=== PATIENT | female | born 1955 | race Caucasian/White ===

== ENCOUNTER 2019-05-15 03:33 | Inpatient (IN) | payer OTHER ==
[~2019-05-15] VITALS: Ht 165.1 cm; Wt 52.2 kg
[2019-05-15] VITALS (14 sets, daily range): BP systolic 85–112; BP diastolic 53–84
--- NOTE | 2019-05-15 03:48 | PHYS DOC ---
Adult General HPI HPI 64-year-old female presents to the emergency department [facility] after a fall. Patient states she's had a few drinks tonight she fell off a barstool landing on her left hip. She denies any loss of consciousness or head injury. Patient complains of left hip pain. She has underlying history of hypertension, hypothyroidism. Patient denies any nausea, vomiting, chest pain, shortness of breath, abdominal pain, headache or visual changes. Movements make the pain worse Review of Systems Review of Systems Constitutional: Denies fever or chills [] Respiratory: Denies cough or shortness of breath [] Cardiovascular: No additional information not addressed in HPI [] GI: Denies abdominal pain, nausea, vomiting, bloody stools or diarrhea [] Musculoskeletal: left hip pain Integument: Denies rash or skin lesions [] Neurologic: Denies headache, focal weakness or sensory changes [] All other systems were reviewed and found to be within normal limits, except as documented in this note. Current Medications Current Medications Current Medications Medications (Trade) Dose Ordered Sig/Ramon Start Time Stop Time Status Last Admin Dose Admin Fentanyl Citrate (Fentanyl 2ml Vial) 100 mcg 1X ONCE 05/15/19 04:15 05/15/19 04:16 UNV 05/15/19 04:14 100 MCG Allergies Allergies Allergies Coded Allergies Type Severity Reaction Last Updated Verified No Known Drug Allergies 05/15/19 No Physical Exam Physical Exam Constitutional: Well developed, well nourished, no acute distress, non-toxic appearance. [] HENT: Normocephalic, atraumatic, bilateral external ears normal, oropharynx moist, no oral exudates, nose normal. [] Eyes: PERRLA, EOMI, conjunctiva normal, no discharge. [] Neck: Normal range of motion, no tenderness, supple, no stridor. [] Cardiovascular:Heart rate regular rhythm, no murmur [] Lungs & Thorax: Bilateral breath sounds clear to auscultation [] Abdomen: Bowel sounds normal, soft, no tenderness, no masses, no pulsatile masses. [] Skin: Warm, dry, no erythema, no rash. [] Back: No tenderness, no CVA tenderness. [] Extremities: No tenderness, no cyanosis, no clubbing, ROM intact, no edema. [] Neurologic: Alert and oriented X 3, normal motor function, normal sensory function, no focal deficits noted. [] Psychologic: Affect normal, judgement normal, mood normal. [] Current Patient Data Vital Signs Vital Signs Date Time Temp Pulse Resp B/P (MAP) Pulse Ox O2 Delivery O2 Flow Rate FiO2 05/15/19 03:33 98.6 76 20 145/87 (106) 99 Room Air 98.6 EKG EKG EKG reviewed, normal sinus rhythm, heart rate 70, normal axis. Nonurgent EKG[] Interpretation Time: Interpretation time 0 4:30 Radiology/Procedures Radiology/Procedures [] Course & Med Decision Making Course & Med Decision Making Pertinent Labs and Imaging studies reviewed. (See chart for details) []64-year-old female presents to the emergency department [facility] after a fall. Patient states she's had a few drinks tonight she fell off a barstool landing on her left hip. She denies any loss of consciousness or head injury. Patient complains of left hip pain. She has underlying history of hypertension, hypothyroidism. Patient denies any nausea, vomiting, chest pain, shortness of breath, abdominal pain, headache or visual changes. Movements make the pain worse Xray reviewed with evidence of left intertrochanteric hip fracture Discussed admit and findings with patient/family at bedside Discussed with Dr. PÉREZ regarding xray Plan admit and ortho consult - NPO Gabo Disclaimer Gabo Disclaimer This electronic medical record was generated, in whole or in part, using a voice recognition dictation system. Departure Departure Impression: Primary Impression: Intertrochanteric fracture of left hip Disposition: ADMITTED INPATIENT Admitting Physician: ANNA Condition: STABLE Problem Qualifiers Primary Impression: Intertrochanteric fracture of left hip Encounter type: initial encounter Fracture type: closed Fracture alignment: nondisplaced Qualified Codes: S72.145A - Nondisplaced intertrochanteric fracture of left femur, initial encounter for closed fracture DAYNA MOROCHO MD May 15, 2019 03:48
[2019-05-15] MEDS ORDERED: fentaNYL PF VIAL 100 MCG/2 ML VIAL IVP ONE (04:15)
[2019-05-15] MEDS ORDERED: ONDANSETRON PF 4 MG/2 ML VIAL. IV PRN ×3 (04:15→16:45)
[2019-05-15 04:35] LABS: BASO # 0.1 x10^3/uL (0.0-0.2); BASO % 1 % (0-3); EOS # 0.4 x10^3/uL (0.0-0.7); EOS % 4 % (0-3); HEMATOCRIT 43.3 % (36.0-47.0); HEMOGLOBIN 15.3 g/dL (12.0-15.5); LYMPH # 2.3 x10^3/uL (1.0-4.8); LYMPH % 25 % (24-48); MEAN CORPUSCULAR HEMOGLOBIN 35 pg (25-35); MEAN CORPUSCULAR HGB CONC 35 g/dL (31-37); MEAN CORPUSCULAR VOLUME 100 fL (79-100); MONO # 0.7 x10^3/uL (0.0-1.1); MONO % 7 % (0-9); NEUT # 5.8 x10^3/uL (1.8-7.7); NEUT % 63 % (31-73); PLATELET COUNT 276 x10^3/uL (140-400); RED BLOOD COUNT 4.33 x10^6/uL (3.50-5.40); RED CELL DISTRIBUTION WIDTH 12.3 % (11.5-14.5); WHITE BLOOD COUNT 9.2 x10^3/uL (4.0-11.0)
[2019-05-15] MEDS ORDERED: HYDROmorphone 2 MG/ML VIAL IV ONE (04:45)
[2019-05-15 04:56] LABS: PROTHROMBIN TIME PATIENT 11.6 SEC (11.7-14.0)
--- NOTE | 2019-05-15 05:10 | RAD ---
Left hip single view: Reason for examination: Fell with shortening and external rotation. There appears to be a comminuted fracture involving the intratrochanteric left femur. The femoral head is in normal location at the acetabulum. Distal femur appears to be intact. IMPRESSION: Comminuted fracture of the intratrochanteric left femur. Electronically signed by: Reema Prajapati MD (05/15/2019 5:07 AM) [facility]
[2019-05-15 05:15] LABS: CALCIUM 10.3 mg/dL (8.5-10.1); CREATININE 0.6 mg/dL (0.6-1.0); POTASSIUM 3.7 mmol/L (3.5-5.1)
[2019-05-15 05:19] LABS: ALBUMIN 4.3 g/dL (3.4-5.0); ALBUMIN/GLOBULIN RATIO 1.2 (1.0-1.7); TOTAL BILIRUBIN 0.4 mg/dL (0.2-1.0)
[2019-05-15] MEDS: fentaNYL PF VIAL 100 MCG/2 ML VIAL IV PRN ×5 (05:52→17:55)
[2019-05-15] MEDS: IV NORMAL SALINE 1000ML BAG 1,000 ML IV SCH ×2 (06:14→13:28)
[2019-05-15] MEDS ORDERED: HYDR12.575 PO (07:25)
[2019-05-15] MEDS ORDERED: LEVO100T PO (07:25)
[2019-05-15] MEDS ORDERED: LOSA25TA54 PO (07:25)
[2019-05-15] MEDS ORDERED: CALC-98 PO (07:25)
[2019-05-15] MEDS ORDERED: MULT1TAB52 PO (07:25)
[2019-05-15] MEDS ORDERED: ASPI-630 PO (07:25)
[2019-05-15] MEDS ORDERED: CARV12.511 PO (07:25)
--- NOTE | 2019-05-15 07:36 | NUR ---
Pt. arrived this morning at 0500 bed from ER. СЕРГЕЙ Price brought her up. Pt. is AxOx4 and on RA but complains of pain to left hip. Enrique is at the bedside. Admission assessment done at this time. Bed in lowest position, call light within reach. Will continue to monitor.
--- NOTE | 2019-05-15 07:41 | NUR ---
Pt.'s pharmacy is [facility] in [place], [place]. It would not pop up on pharmacies so [facility] pharmacy was put in as preferred.
[2019-05-15] MEDS ORDERED: IV RINGERS,LACTATED 1000ML 1,000 ML IV SCH (07:54)
[2019-05-15] MEDS ORDERED: MORPHINE SULFATE 2 MG/ML VIAL. IV PRN ×2 (08:00→16:45)
[2019-05-15] MEDS ORDERED: fentaNYL PF VIAL 100 MCG/2 ML VIAL IV PRN ×2 (08:00→16:45)
[2019-05-15] MEDS ORDERED: HYDROmorphone 2 MG/ML VIAL IV PRN (08:00)
[2019-05-15] MEDS ORDERED: PROCHLORPERAZINE 10 MG/2 ML VIAL. IV PRN (08:00)
--- NOTE | 2019-05-15 08:30 | PDOC1 ---
History and Physical Date of Admission Date of Admission DATE: 05/15/19 TIME: 08:25 Identification/Chief Complaint Chief Complaint Fall, left hip pain History of Present Illness History of Present Illness Ms Pollard is a 64yo F w/ PMHx hypothyroidism, HTN, smoker who [facility] a [facility]. Patient states she's had a few drinks tonight she fell off a barstool landing on her left hip. She denies any loss of consciousness or head injury. Patient complains of left hip pain. She has underlying history of hypertension, hypothyroidism. Patient denies any nausea, vomiting, chest pain, shortness of breath, abdominal pain, headache or visual changes. Movements make the pain worse. Noted with shortening and external rotation in ED, confirmed left intertrochanteric comminuted fracture on X-ray. EKG showed NSR. Sodium 132, calcium 10.3. Per her daughter she has a relatively heavy ETOH use history. Past Medical History Cardiovascular: HTN GI: No pertinent hx Heme/Onc: No pertinent hx Hepatobiliary: No pertinent hx Psych: No pertinent hx Rheumatologic: No pertinent hx Infectious disease: No pertinent hx ENT: No pertinent hx Renal/: No pertinent hx Endocrine: Hypothyroidism Dermatology: No pertinent hx Family History Family History: Hypertension Social History Smoke: 1 pack per day ALCOHOL: heavy Drugs: None Current Problem List Problem List Problems Medical Problems: (1) Fall Status: Acute (2) Hypertension Status: Acute (3) Intertrochanteric fracture of left hip Status: Acute (4) Left hip pain Status: Acute Current Medications Current Medications Current Medications Fentanyl Citrate (Fentanyl 2ml Vial) 100 mcg 1X ONCE IVP Last administered on 05/15/19at 04:14; Start 05/15/19 at 04:15; Stop 05/15/19 at 04:28; Status DC Ondansetron HCl (Zofran) 4 mg PRN Q8HRS PRN IV NAUSEA/VOMITING Last administered on 05/15/19at 04:56; Start 05/15/19 at 04:15; Stop 05/16/19 at 04:14 Fentanyl Citrate (Fentanyl 2ml Vial) 50 mcg PRN Q1HR PRN IV PAIN Last administered on 05/15/19at 08:23; Start 05/15/19 at 04:15; Stop 05/16/19 at 04:14 Sodium Chloride 1,000 ml @ 100 mls/hr Q10H IV Last administered on 05/15/19at 06:14; Start 05/15/19 at 04:15; Stop 05/16/19 at 04:14 Hydromorphone HCl (Dilaudid) 1 mg 1X ONCE IV Last administered on 05/15/19at 04:56; Start 05/15/19 at 04:45; Stop 05/15/19 at 05:01; Status DC Influenza Virus Vaccine Quadrival (Afluria Quad 2019-20 (3yr Up) Syringe) 0.5 ml ONCE ONCE VAX IM ; Start 05/15/19 at 09:00; Stop 05/15/19 at 09:01 Ondansetron HCl (Zofran) 4 mg PRN Q6HRS PRN IV NAUSEA/VOMITING; Start 05/15/19 at 08:00; Stop 05/16/19 at 07:59 Fentanyl Citrate (Fentanyl 2ml Vial) 25 mcg PRN Q5MIN PRN IV MILD PAIN 1-3; Start 05/15/19 at 08:00; Stop 05/16/19 at 07:59 Fentanyl Citrate (Fentanyl 2ml Vial) 50 mcg PRN Q5MIN PRN IV MODERATE TO SEVERE PAIN; Start 05/15/19 at 08:00; Stop 05/16/19 at 07:59 Morphine Sulfate (Morphine Sulfate) 1 mg PRN Q10MIN PRN IV SEVERE PAIN 7-10; Start 05/15/19 at 08:00; Stop 05/16/19 at 07:59 Ringer's Solution 1,000 ml @ 30 mls/hr Q24H IV ; Start 05/15/19 at 07:54; Stop 05/15/19 at 19:53 Hydromorphone HCl (Dilaudid) 0.5 mg PRN Q10MIN PRN IV SEV PAIN, Second choice; Start 05/15/19 at 08:00; Stop 05/16/19 at 07:59 Prochlorperazine Edisylate (Compazine) 5 mg PACU PRN PRN IV NAUSEA, MRX1; Star t 05/15/19 at 08:00; Stop 05/16/19 at 07:59 Active Scripts Active Reported Multivitamins (Multivitamin) 1 Each Tablet 1 Tab PO DAILY Calcium + Vitamin D Tablet (Calcium Carbonate/Vitamin D3) 1 Each Tablet 1 Each PO DAILY Aspirin 81 Mg Tab.chew 1 Tab PO DAILY Losartan Potassium (Losartan Potassium) 25 Mg Tablet 25 Mg PO DAILY Carvedilol (Carvedilol) 12.5 Mg Tablet 12.5 Mg PO BIDWMEALS Hydrochlorothiazide Capsule (Hydrochlorothiazide) 12.5 Mg Capsule 12.5 Mg PO DAILY Synthroid (Levothyroxine Sodium) 100 Mcg Tablet 1 Tab PO DAILY Allergies Allergies: Coded Allergies: No Known Drug Allergies (Unverified , 05/15/19) ROS General: No: Chills, Night Sweats, Fatigue, Malaise, Appetite, Other PSYCHOLOGICAL ROS: No: Anxiety, Behavioral Disorder, Concentration difficultie, Decreased libido, Depression, Disorientation, Hallucinations, Hostility, Irritablity, Memory difficulties, Mood Swings, Obsessive thoughts, Physical abuse, Sexual abuse, Sleep disturbances, Suicidal ideation, Other Eyes: No Blurry vision, No Decreased vision, No Double vision, No Dry eyes, No Excessive tearing, No Eye Pain, No Itchy Eyes, No Loss of vision, No Photophobia, No Scotomata, No Uses contacts, No Uses glasses, No Other HEENT: No: Heacaches, Visual Changes, Hearing change, Nasal congestion, Nasal discharge, Oral lesions, Sinus pain, Sore Throat, Epistaxis, Sneezing, Snoring, Tinnitus, Vertigo, Vocal changes, Other ALLERGY AND IMMUNOLOGY: No: Hives, Insect Bite Sensitivity, Itchy/Watery Eyes, Nasal Congestion, Post Nasal Drip, Seasonal Allergies, Other Hematological and Lymphatic: No: Bleeding Problems, Blood Clots, Blood Transfusions, Brusing, Night Sweats, Pallor, Swollen Lymph Nodes, Other ENDOCRINE: No: Breast Changes, Galactorrhea, Hair Pattern Changes, Hot Flashes, Malaise/lethargy, Mood Swings, Palpitations, Polydipsia/polyuria, Skin Changes, Temperature Intolerance, Unexpected Weight Changes, Other Breast: No New/Changing Breast Lumps, No Nipple changes, No Nipple discharge, No Other Respiratory: No: Cough, Hemoptysis, Orthopnea, Pleuritic Pain, Shortness of breath, SOB with excertion, Sputum Changes, Stridor, Tachypnea, Wheezing, Other Cardiovascular: No Chest Pain, No Palpitations, No Orthopnea, No Paroxysmal Noc. Dyspnea, No Edema, No Lt Headedness, No Other Gastrointestinal: No Nausea, No Vomiting, No Abdominal Pain, No Diarrhea, No Constipation, No Melena, No Hematochezia, No Other Genitourinary: No Dysuria, No Frequency, No Incontinence, No Hematuria, No Retention, No Discharge, No Urgency, No Pain, No Flank Pain, No Other, No , No , No , No , No , No , No Musculoskeletal: Yes Joint Stiffness; No Gait Disturbance, No Joint Pain, No Joint Swelling, No Muscle Pain, No Muscular Weakness, No Pain In:, No Swelling In:, No Other Neurological: No Behavorial Changes, No Bowel/Bladder ControlChng, No Confusion, No Dizziness, No Gait Disturbance, No Headaches, No Impaired Social Welfare Research Worker rd/balance, No Memory Loss, No Numbness/Tingling, No Seizures, No Speech Problems, No Tremors, No Visual Changes, No Weakness, No Other Skin: No Dry Skin, No Eczema, No Hair Changes, No Lumps, No Mole Changes, No Mottling, No Nail Changes, No Pruritus, No Rash, No Skin Lesion Changes, No Other, No Acne Physical Exam General: Alert, Oriented X3, Cooperative, mild distress HEENT: Atraumatic, PERRLA, EOMI, Mucous membr. moist/pink Lungs: Clear to auscultation, Normal air movement Heart: S1S2, RRR, no thrills, no rubs, no gallops, no murmurs Abdomen: Normal bowel sounds, Soft, No tenderness, No hepatosplenomegaly, No masses Rectal Exam: not examined Extremities: No clubbing, No cyanosis, No edema, Normal pulses, Other Skin: No rashes, No breakdown, No significant lesion Neuro: Normal speech, Normal tone, Sensation intact, Cranial nerves 3-12 NL, Reflexes 2+ Psych/Mental Status: Mental status NL, Mood NL Vitals Vitals Vital Signs Date Time Temp Pulse Resp B/P (MAP) Pulse Ox O2 Delivery O2 Flow Rate FiO2 05/15/19 08:23 20 Room Air 05/15/19 06:13 98.2 71 112/53 (72) 93 98.2 Labs Labs Laboratory Tests Test 05/15/19 04:30 White Blood Count 9.2 x10^3/uL (4.0-11.0) Red Blood Count 4.33 x10^6/uL (3.50-5.40) Hemoglobin 15.3 g/dL (12.0-15.5) Hematocrit 43.3 % (36.0-47.0) Mean Corpuscular Volume 100 fL (79-100) Mean Corpuscular Hemoglobin 35 pg (25-35) Mean Corpuscular Hemoglobin Concent 35 g/dL (31-37) Red Cell Distribution Width 12.3 % (11.5-14.5) Platelet Count 276 x10^3/uL (140-400) Neutrophils (%) (Auto) 63 % (31-73) Lymphocytes (%) (Auto) 25 % (24-48) Monocytes (%) (Auto) 7 % (0-9) Eosinophils (%) (Auto) 4 % (0-3) Basophils (%) (Auto) 1 % (0-3) Neutrophils # (Auto) 5.8 x10^3/uL (1.8-7.7) Lymphocytes # (Auto) 2.3 x10^3/uL (1.0-4.8) Monocytes # (Auto) 0.7 x10^3/uL (0.0-1.1) Eosinophils # (Auto) 0.4 x10^3/uL (0.0-0.7) Basophils # (Auto) 0.1 x10^3/uL (0.0-0.2) Prothrombin Time 11.6 SEC (11.7-14.0) Prothromb Time International Ratio 0.9 (0.8-1.1) Sodium Level 132 mmol/L (136-145) Potassium Level 3.7 mmol/L (3.5-5.1) Chloride Level 95 mmol/L (98-107) Carbon Dioxide Level 25 mmol/L (21-32) Anion Gap 12 (6-14) Blood Urea Nitrogen 8 mg/dL (7-20) Creatinine 0.6 mg/dL (0.6-1.0) Estimated GFR (Cockcroft-Gault) 101.0 BUN/Creatinine Ratio 13 (6-20) Glucose Level 100 mg/dL (70-99) Calcium Level 10.3 mg/dL (8.5-10.1) Total Bilirubin 0.4 mg/dL (0.2-1.0) Aspartate Amino Transf (AST/SGOT) 37 U/L (15-37) Alanine Aminotransferase (ALT/SGPT) 40 U/L (14-59) Alkaline Phosphatase 108 U/L (46-116) Total Protein 8.0 g/dL (6.4-8.2) Albumin 4.3 g/dL (3.4-5.0) Albumin/Globulin Ratio 1.2 (1.0-1.7) Laboratory Tests Test 05/15/19 04:30 White Blood Count 9.2 x10^3/uL (4.0-11.0) Red Blood Count 4.33 x10^6/uL (3.50-5.40) Hemoglobin 15.3 g/dL (12.0-15.5) Hematocrit 43.3 % (36.0-47.0) Mean Corpuscular Volume 100 fL (79-100) Mean Corpuscular Hemoglobin 35 pg (25-35) Mean Corpuscular Hemoglobin Concent 35 g/dL (31-37) Red Cell Distribution Width 12.3 % (11.5-14.5) Platelet Count 276 x10^3/uL (140-400) Neutrophils (%) (Auto) 63 % (31-73) Lymphocytes (%) (Auto) 25 % (24-48) Monocytes (%) (Auto) 7 % (0-9) Eosinophils (%) (Auto) 4 % (0-3) Basophils (%) (Auto) 1 % (0-3) Neutrophils # (Auto) 5.8 x10^3/uL (1.8-7.7) Lymphocytes # (Auto) 2.3 x10^3/uL (1.0-4.8) Monocytes # (Auto) 0.7 x10^3/uL (0.0-1.1) Eosinophils # (Auto) 0.4 x10^3/uL (0.0-0.7) Basophils # (Auto) 0.1 x10^3/uL (0.0-0.2) Prothrombin Time 11.6 SEC (11.7-14.0) Prothromb Time International Ratio 0.9 (0.8-1.1) Sodium Level 132 mmol/L (136-145) Potassium Level 3.7 mmol/L (3.5-5.1) Chloride Level 95 mmol/L (98-107) Carbon Dioxide Level 25 mmol/L (21-32) Anion Gap 12 (6-14) Blood Urea Nitrogen 8 mg/dL (7-20) Creatinine 0.6 mg/dL (0.6-1.0) Estimated GFR (Cockcroft-Gault) 101.0 BUN/Creatinine Ratio 13 (6-20) Glucose Level 100 mg/dL (70-99) Calcium Level 10.3 mg/dL (8.5-10.1) Total Bilirubin 0.4 mg/dL (0.2-1.0) Aspartate Amino Transf (AST/SGOT) 37 U/L (15-37) Alanine Aminotransferase (ALT/SGPT) 40 U/L (14-59) Alkaline Phosphatase 108 U/L (46-116) Total Protein 8.0 g/dL (6.4-8.2) Albumin 4.3 g/dL (3.4-5.0) Albumin/Globulin Ratio 1.2 (1.0-1.7) Images Images Left Hip Xray - There appears to be a comminuted fracture involving the intrat rochanteric left femur. The femoral head is in normal location at the acetabulum. Distal femur appears to be intact. IMPRESSION: Comminuted fracture of the intratrochanteric left femur. VTE Prophylaxis Ordered VTE Prophylaxis Devices: No VTE Pharmacological Prophylaxi: Yes Assessment/Plan Assessment/Plan A/P: Left hip fracture - comminuted. No contraindications to surgery. No further testing, on beta ga, EKG WNL. Ortho consulted. Pain control. PT/OT post-op. D/w ortho for coumadin or xarelto for ppx Hypothyroidism - on levothyroxine, will continue Hypercalcemia - acute possibly related to fracture, will repeat. Check vitamin D level ETOH abuse - will place on CIWA scale post-operatively HTN - cont meds. monitor BP Smoker - will offer nicotine patch. 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
[2019-05-15] MEDS ORDERED: FLU VAX QS 2019-20 (36MOS+)/PF 0.5 ML SYRINGE. VAX IM ONE (09:00)
--- NOTE | 2019-05-15 10:29 | EKG ---
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
[2019-05-15] MEDS ORDERED: SEVOFLURANE 61 TO 120 MINUTES. IH ONE (10:57)
[2019-05-15] MEDS ORDERED: KETOROLAC 30 MG/ML VIAL. ONE (10:57)
[2019-05-15] MEDS ORDERED: LIDOCAINE 2% PF 5 ML VIAL. ONE (10:57)
[2019-05-15] MEDS ORDERED: PROPOFOL 20 ML IV ONE (10:57)
[2019-05-15] MEDS ORDERED: DEXAMETHASONE SOD PHOS 4 MG/ML VIAL ONE (10:57)
[2019-05-15] MEDS ORDERED: ONDANSETRON PF 4 MG/2 ML VIAL. ONE (10:57)
[2019-05-15] MEDS ORDERED: fentaNYL PF VIAL 100 MCG/2 ML VIAL ONE (11:16)
[2019-05-15] MEDS ORDERED: MIDAZOLAM HCL/PF 2 MG/2 ML VIAL. ONE (11:21)
[2019-05-15] MEDS ORDERED: ceFAZolin SODIUM 1 GM VIAL ONE (12:01)
[2019-05-15] MEDS ORDERED: PHENYLEPHRINE in 0.9% NACL PF 1 MG/10 ML SYRINGE. IV ONE (12:45)
[2019-05-15] MEDS ORDERED: LORazepam 1 MG TABLET PO PRN (13:30)
[2019-05-15] MEDS ORDERED: cloNIDine HCL 0.1 MG TABLET PO PRN (13:30)
[2019-05-15] MEDS ORDERED: LOSARTAN POTASSIUM 25 MG TABLET. PO SCH (14:00)
[2019-05-15] MEDS ORDERED: ENOXAPARIN 40 MG/0.4 ML SYRINGE. SQ SCH (14:30)
[2019-05-15] MEDS ORDERED: WARFARIN 5 MG TABLET. PO SCH (16:00)
--- NOTE | 2019-05-15 16:37 | PDOC4 ---
Operative Note Operative Note Date of surgery: 05/15/2019 Preoperative diagnosis: Displaced intertrochanteric subtrochanteric left hip fracture Postoperative diagnosis: Same Operative indications: Operative reduction internal fixation left intertrochanteric subtrochanteric hip fracture with long intramedullary nail fixation Surgeon: Stainder Anesthesia: Gen. Estimated blood loss: 250 mL, containing significant hematoma Complications: None Operative indications: Please see my orthopedic consultation for detailed operative indications Operative text: Patient was identified procedure verified patient placed in the supine position on the operating table. After adequate amounts of general anesthesia were administered she was placed on the fracture table left lower extremity was placed under traction right leg placed in the well-leg hargrove and all bony prominences were well-padded. The left hip fracture was reduced under fluoroscopic guidance prepped and draped in standard sterile fashion and after timeout was performed patient procedure identified and verified and incision was made just proximal to the greater trochanteric starting point the trochanteric awl was used to enter the greater trochanteric entry point and a long guidewire was placed entry drill reamer was placed under fluoroscopic guidance and reaming carried out up to a size 13 down the entire canal then a size 11.5 mm x 34 cm long Inter[employer]AN nail by [email or web address] was placed under fluoroscopic guidance a guidewire was placed up the center of the femoral neck cortex was breached with a compression screw and antirotation bar was placed the lag screw was then drilled and a size 85 lag screw was placed with about 7 mm of compression and had excellent stability after the compression and essentially anatomic reduction. The entry hardware was removed and distal locking screw was placed in the dynamic hole with a 40 mm screw under fluoroscopic visualization. Hardware placement and reduction of the fracture were reviewed under multiple fluoroscopic views thorough irrigation carried out normal saline solution fascia was closed with #1 Vicryl suture subcutaneous closure with buried Vicryl suture skin closure with kennedy sterile dressings were applied patient was returned to recovery room in stable condition having tolerated procedure well GORDO PÉREZ MD May 15, 2019 16:37
[2019-05-15] MEDS ORDERED: MORPHINE SULFATE 4 MG/ML VIAL. IV PRN (16:45)
[2019-05-15] MEDS ORDERED: DEXTROSE 50% 25 GM / 50ML DISP.SYRIN. IV PRN (16:45)
[2019-05-15] MEDS ORDERED: POLYETHYLENE GLYCOL 3350 17 GM PACKET. PO PRN (16:45)
[2019-05-15] MEDS: ceFAZolin SODIUM IV Push 1 GM VIAL. IVP SCH (17:51)
[2019-05-15] MEDS: RIVAROXABAN 10 MG TABLET. PO SCH (17:52)
[2019-05-15] MEDS: ASPIRIN CHEWABLE 81 MG TABLET. PO SCH (17:52)
[2019-05-15] MEDS: CALCIUM CARB/VIT D3 500/200 TABLET. PO SCH (17:52)
[2019-05-15] MEDS: hydroCHLOROthiazide 12.5 MG CAPSULE PO SCH (17:53)
[2019-05-15] MEDS: CARVEDILOL 12.5 MG TABLET. PO SCH (17:54)
[2019-05-15] MEDS: LEVOTHYROXINE 100 MCG TABLET PO SCH (17:59)
--- NOTE | 2019-05-15 21:58 | CONS ---
DATE OF CONSULTATION: 05/15/2019 REQUESTING PHYSICIAN: Eros Chavez M.D. REASON FOR CONSULTATION: Left hip fracture. HISTORY OF PRESENT ILLNESS: Patient is a 64-year-old female who was [place] [employer] [place] and after having a few drinks tonight, fell off a barstool, landed on her tailbone, and left hip area, complained of severe left hip pain, and inability to bear weight. She denies any other extremity injury, loss of consciousness, head injury, neck or back pain. PAST MEDICAL HISTORY: Significant for hypertension and hypothyroidism. PAST SURGICAL HISTORY: None. SOCIAL HISTORY: She is a 1 pack per day smoker, indicates heavy alcohol use. Her daughter who is a nurse indicates that she has had a heavy alcohol use for some time. She had cut back a little bit due to some elevated liver enzymes recently, although drinks on a regular daily basis. Denies drug use. FAMILY HISTORY: Hypertension. MEDICATIONS: List is reviewed. ALLERGIES: She has no known drug allergies. REVIEW OF SYSTEMS: Significant for the immediate onset of left hip pain, inability to bear weight after her fall and elevated liver enzymes, treated with some cutting back in her drinking. Denies any chest pain, shortness of breath, head injury, visual changes, any other focal weakness, numbness, tingling or other extremity injury. PHYSICAL EXAMINATION: GENERAL: Pleasant, cooperative 64-year-old female, in minimal distress secondary to her left hip pain. HEENT: Atraumatic, normocephalic. MUSCULOSKELETAL: No tenderness on palpation over the neck or back. She has full range of motion of shoulder, elbow, and wrist bilaterally with no tenderness, effusion or instability. Left lower extremity is shortened, internally rotated. Normal alignment and stability, bilateral knees and ankles. Normal examination of the contralateral right hip, but severe pain in left hip on any motion or palpation. IMAGING: X-rays show a displaced intertrochanteric/subtrochanteric left hip fracture. Hip joint is well maintained. TREATMENT PLAN: I went over with her and her family the rationale for fixation of the hip fracture. Her activity level would be dependent on the stability of the fracture as it is fixated. The rationale for operative versus nonoperative treatment options is really to minimize her immobility related complications. I did go over with her the possibility of nonhealing, hardware breakage infection, nerve or blood vessel damage, medical or other anesthetic complications among the others. All her questions were answered and she wishes to proceed with surgical evaluation and treatment, which will occur today. I did also discuss with Dr. Chavez postoperative management of some of her alcohol issues and the possibility of a nicotine patch as well. GORDO PÉREZ MD DR: PEGGY/sara JOB#: [id number] / [id number]
[2019-05-16] VITALS (7 sets, daily range): BP systolic 77–117; BP diastolic 39–95
[2019-05-16] MEDS: ceFAZolin SODIUM IV Push 1 GM VIAL. IVP SCH ×2 (00:04→06:09)
[2019-05-16] MEDS: IV NORMAL SALINE 1000ML BAG 1,000 ML IV SCH (00:09)
[2019-05-16] MEDS: fentaNYL PF VIAL 100 MCG/2 ML VIAL IV PRN (02:03)
--- NOTE | 2019-05-16 02:04 | NUR ---
screen locked out after waiting so long so this nurse had to click "administer" without scanning vile.
[2019-05-16] MEDS ORDERED: MAGNESIUM HYDROXIDE 2,400 MG/30 ML ORAL.SUSP. PO PRN (06:00)
[2019-05-16] MEDS: LEVOTHYROXINE 100 MCG TABLET PO SCH (06:09)
[2019-05-16] MEDS: oxyCODONE IR 5 MG TABLET PO PRN (06:16)
[2019-05-16 07:07] LABS: BASO % 0 % (0-3); EOS % 0 % (0-3); HEMATOCRIT 27.4 % (36.0-47.0); HEMOGLOBIN 9.3 g/dL (12.0-15.5); LYMPH # 1.8 x10^3/uL (1.0-4.8); LYMPH % 15 % (24-48); MEAN CORPUSCULAR HEMOGLOBIN 35 pg (25-35); MEAN CORPUSCULAR HGB CONC 34 g/dL (31-37); MEAN CORPUSCULAR VOLUME 102 fL (79-100); MONO # 1.1 x10^3/uL (0.0-1.1); MONO % 9 % (0-9); NEUT % 76 % (31-73); PLATELET COUNT 197 x10^3/uL (140-400); RED BLOOD COUNT 2.69 x10^6/uL (3.50-5.40); RED CELL DISTRIBUTION WIDTH 12.6 % (11.5-14.5); WHITE BLOOD COUNT 11.9 x10^3/uL (4.0-11.0)
[2019-05-16 07:23] LABS: ALBUMIN 2.9 g/dL (3.4-5.0); CALCIUM 8.7 mg/dL (8.5-10.1); CREATININE 0.7 mg/dL (0.6-1.0); GFR 84.5; POTASSIUM 4.9 mmol/L (3.5-5.1); TOTAL BILIRUBIN 0.7 mg/dL (0.2-1.0); TOTAL PROTEIN 5.8 g/dL (6.4-8.2)
[2019-05-16] MEDS: HYDROcodone/APAP 7.5/325MG 1 TAB TABLET PO PRN ×3 (07:24→17:13)
[2019-05-16 07:42] LABS: PROTHROMBIN TIME PATIENT 18.2 SEC (11.7-14.0)
[2019-05-16] MEDS: hydroCHLOROthiazide 12.5 MG CAPSULE PO SCH (08:46)
[2019-05-16] MEDS: CALCIUM CARB/VIT D3 500/200 TABLET. PO SCH (08:47)
[2019-05-16] MEDS: ASPIRIN CHEWABLE 81 MG TABLET. PO SCH (08:47)
[2019-05-16] MEDS: SENNOSIDES/DOCUSATE 8.6/50MG TABLET. PO SCH (08:47)
[2019-05-16] MEDS: CARVEDILOL 12.5 MG TABLET. PO SCH ×2 (08:48→17:14)
[2019-05-16] MEDS: MULTIVIT INFUSN,ADULT 4,VIT K 10 ML, THIAMINE INJ 100 MG, FOLIC ACID INJ 1 MG in IV NOR... IV SCH (08:57)
[2019-05-16] MEDS ORDERED: IV NORMAL SALINE 1000ML BAG 1,000 ML IV ONE (12:00)
--- NOTE | 2019-05-16 12:05 | PDOC ---
PROGRESS NOTES Chief Complaint Chief Complaint A/P: Left hip fracture - comminuted. Ortho consulted. Pain control. PT/OT post-op. D/w ortho for xarelto for ppx. 05/15/19 - Operative reduction internal fixation left intertrochanteric subtrochanteric hip fracture with long intramedullary nail fixation Hypothyroidism - on levothyroxine, will continue Hypercalcemia - acute possibly related to fracture, will repeat. Check vitamin D level ETOH abuse - will place on CIWA scale post-operatively HTN - cont meds. monitor BP Smoker - will offer nicotine patch. assessment counselor on cessation Acute Macrocytic Anemia - she was obviously hemoconcentrated from her drinking prior to admission. Now Hb 9.3 and MCV 102, likely related to ETOH use. Will monitor, iron and B12 Orthostatic hypotension - from low volume status, will bolus FEN - general diet post op PPX - Xarelto FULL CODE Dispo - inpatient for acute hip fracture History of Present Illness History of Present Illness Ms Pollard is a 64yo F w/ PMHx hypothyroidism, HTN, smoker [place] [facility]. Patient states she's had a few drinks tonight she fell off a barstool landing on her left hip. She denies any loss of consciousnes s or head injury. Patient complains of left hip pain. She has underlying history of hypertension, hypothyroidism. Patient denies any nausea, vomiting, chest pain, shortness of breath, abdominal pain, headache or visual changes. Movements make the pain worse. Noted with shortening and external rotation in ED, confirmed left intertrochanteric comminuted fracture on X-ray. EKG showed NSR. Sodium 132, calcium 10.3. Per her daughter she has a relatively heavy ETOH use history. S/p Operative reduction internal fixation left intertrochanteric subtrochanteric hip fracture with long intramedullary nail fixation on 05/15/19. Recovering reasonably well today. Very hypotensive when ambulating. No CP or SOB. Vitals Vitals Vital Signs Date Time Temp Pulse Resp B/P (MAP) Pulse Ox O2 Delivery O2 Flow Rate FiO2 05/16/19 11:00 98.8 79 16 93/39 (57) 92 Room Air 98.8 05/16/19 03:23 2.0 Physical Exam General: Alert, Oriented X3, Cooperative, mild distress Abdomen: Normal bowel sounds, Soft, No tenderness, No hepatosplenomegaly, No masses Extremities: No clubbing, No cyanosis, No edema, Normal pulses, Other Skin: No rashes, No breakdown, No significant lesion Labs LABS Laboratory Tests Test 05/16/19 06:26 White Blood Count 11.9 x10^3/uL (4.0-11.0) Red Blood Count 2.69 x10^6/uL (3.50-5.40) Hemoglobin 9.3 g/dL (12.0-15.5) Hematocrit 27.4 % (36.0-47.0) Mean Corpuscular Volume 102 fL (79-100) Mean Corpuscular Hemoglobin 35 pg (25-35) Mean Corpuscular Hemoglobin Concent 34 g/dL (31-37) Red Cell Distribution Width 12.6 % (11.5-14.5) Platelet Count 197 x10^3/uL (140-400) Neutrophils (%) (Auto) 76 % (31-73) Lymphocytes (%) (Auto) 15 % (24-48) Monocytes (%) (Auto) 9 % (0-9) Eosinophils (%) (Auto) 0 % (0-3) Basophils (%) (Auto) 0 % (0-3) Neutrophils # (Auto) 9.0 x10^3/uL (1.8-7.7) Lymphocytes # (Auto) 1.8 x10^3/uL (1.0-4.8) Monocytes # (Auto) 1.1 x10^3/uL (0.0-1.1) Eosinophils # (Auto) 0.0 x10^3/uL (0.0-0.7) Basophils # (Auto) 0.0 x10^3/uL (0.0-0.2) Prothrombin Time 18.2 SEC (11.7-14.0) Prothromb Time International Ratio 1.5 (0.8-1.1) Sodium Level 137 mmol/L (136-145) Potassium Level 4.9 mmol/L (3.5-5.1) Chloride Level 104 mmol/L (98-107) Carbon Dioxide Level 28 mmol/L (21-32) Anion Gap 5 (6-14) Blood Urea Nitrogen 15 mg/dL (7-20) Creatinine 0.7 mg/dL (0.6-1.0) Estimated GFR (Cockcroft-Gault) 84.5 BUN/Creatinine Ratio 21 (6-20) Glucose Level 97 mg/dL (70-99) Calcium Level 8.7 mg/dL (8.5-10.1) Total Bilirubin 0.7 mg/dL (0.2-1.0) Aspartate Amino Transf (AST/SGOT) 28 U/L (15-37) Alanine Aminotransferase (ALT/SGPT) 28 U/L (14-59) Alkaline Phosphatase 60 U/L (46-116) Total Protein 5.8 g/dL (6.4-8.2) Albumin 2.9 g/dL (3.4-5.0) Albumin/Globulin Ratio 1.0 (1.0-1.7) Assessment and Plan Assessmemt and Plan Problems Medical Problems: (1) Fall Status: Acute (2) Hypertension Status: Acute (3) Intertrochanteric fracture of left hip Status: Acute (4) Left hip pain Status: Acute Comment Review of Relevant I have reviewed the following items marily (where applicable) has been applied. Labs Laboratory Tests Test 05/15/19 04:30 05/16/19 06:26 White Blood Count 9.2 x10^3/uL (4.0-11.0) 11.9 x10^3/uL (4.0-11.0) Red Blood Count 4.33 x10^6/uL (3.50-5.40) 2.69 x10^6/uL (3.50-5.40) Hemoglobin 15.3 g/dL (12.0-15.5) 9.3 g/dL (12.0-15.5) Hematocrit 43.3 % (36.0-47.0) 27.4 % (36.0-47.0) Mean Corpuscular Volume 100 fL (79-100) 102 fL (79-100) Mean Corpuscular Hemoglobin 35 pg (25-35) 35 pg (25-35) Mean Corpuscular Hemoglobin Concent 35 g/dL (31-37) 34 g/dL (31-37) Red Cell Distribution Width 12.3 % (11.5-14.5) 12.6 % (11.5-14.5) Platelet Count 276 x10^3/uL (140-400) 197 x10^3/uL (140-400) Neutrophils (%) (Auto) 63 % (31-73) 76 % (31-73) Lymphocytes (%) (Auto) 25 % (24-48) 15 % (24-48) Monocytes (%) (Auto) 7 % (0-9) 9 % (0-9) Eosinophils (%) (Auto) 4 % (0-3) 0 % (0-3) Basophils (%) (Auto) 1 % (0-3) 0 % (0-3) Neutrophils # (Auto) 5.8 x10^3/uL (1.8-7.7) 9.0 x10^3/uL (1.8-7.7) Lymphocytes # (Auto) 2.3 x10^3/uL (1.0-4.8) 1.8 x10^3/uL (1.0-4.8) Monocytes # (Auto) 0.7 x10^3/uL (0.0-1.1) 1.1 x10^3/uL (0.0-1.1) Eosinophils # (Auto) 0.4 x10^3/uL (0.0-0.7) 0.0 x10^3/uL (0.0-0.7) Basophils # (Auto) 0.1 x10^3/uL (0.0-0.2) 0.0 x10^3/uL (0.0-0.2) Prothrombin Time 11.6 SEC (11.7-14.0) 18.2 SEC (11.7-14.0) Prothromb Time International Ratio 0.9 (0.8-1.1) 1.5 (0.8-1.1) Sodium Level 132 mmol/L (136-145) 137 mmol/L (136-145) Potassium Level 3.7 mmol/L (3.5-5.1) 4.9 mmol/L (3.5-5.1) Chloride Level 95 mmol/L (98-107) 104 mmol/L (98-107) Carbon Dioxide Level 25 mmol/L (21-32) 28 mmol/L (21-32) Anion Gap 12 (6-14) 5 (6-14) Blood Urea Nitrogen 8 mg/dL (7-20) 15 mg/dL (7-20) Creatinine 0.6 mg/dL (0.6-1.0) 0.7 mg/dL (0.6-1.0) Estimated GFR (Cockcroft-Gault) 101.0 84.5 BUN/Creatinine Ratio 13 (6-20) 21 (6-20) Glucose Level 100 mg/dL (70-99) 97 mg/dL (70-99) Calcium Level 10.3 mg/dL (8.5-10.1) 8.7 mg/dL (8.5-10.1) Total Bilirubin 0.4 mg/dL (0.2-1.0) 0.7 mg/dL (0.2-1.0) Aspartate Amino Transf (AST/SGOT) 37 U/L (15-37) 28 U/L (15-37) Alanine Aminotransferase (ALT/SGPT) 40 U/L (14-59) 28 U/L (14-59) Alkaline Phosphatase 108 U/L (46-116) 60 U/L (46-116) Total Protein 8.0 g/dL (6.4-8.2) 5.8 g/dL (6.4-8.2) Albumin 4.3 g/dL (3.4-5.0) 2.9 g/dL (3.4-5.0) Albumin/Globulin Ratio 1.2 (1.0-1.7) 1.0 (1.0-1.7) Laboratory Tests Test 05/16/19 06:26 White Blood Count 11.9 x10^3/uL (4.0-11.0) Red Blood Count 2.69 x10^6/uL (3.50-5.40) Hemoglobin 9.3 g/dL (12.0-15.5) Hematocrit 27.4 % (36.0-47.0) Mean Corpuscular Volume 102 fL (79-100) Mean Corpuscular Hemoglobin 35 pg (25-35) Mean Corpuscular Hemoglobin Concent 34 g/dL (31-37) Red Cell Distribution Width 12.6 % (11.5-14.5) Platelet Count 197 x10^3/uL (140-400) Neutrophils (%) (Auto) 76 % (31-73) Lymphocytes (%) (Auto) 15 % (24-48) Monocytes (%) (Auto) 9 % (0-9) Eosinophils (%) (Auto) 0 % (0-3) Basophils (%) (Auto) 0 % (0-3) Neutrophils # (Auto) 9.0 x10^3/uL (1.8-7.7) Lymphocytes # (Auto) 1.8 x10^3/uL (1.0-4.8) Monocytes # (Auto) 1.1 x10^3/uL (0.0-1.1) Eosinophils # (Auto) 0.0 x10^3/uL (0.0-0.7) Basophils # (Auto) 0.0 x10^3/uL (0.0-0.2) Prothrombin Time 18.2 SEC (11.7-14.0) Prothromb Time International Ratio 1.5 (0.8-1.1) Sodium Level 137 mmol/L (136-145) Potassium Level 4.9 mmol/L (3.5-5.1) Chloride Level 104 mmol/L (98-107) Carbon Dioxide Level 28 mmol/L (21-32) Anion Gap 5 (6-14) Blood Urea Nitrogen 15 mg/dL (7-20) Creatinine 0.7 mg/dL (0.6-1.0) Estimated GFR (Cockcroft-Gault) 84.5 BUN/Creatinine Ratio 21 (6-20) Glucose Level 97 mg/dL (70-99) Calcium Level 8.7 mg/dL (8.5-10.1) Total Bilirubin 0.7 mg/dL (0.2-1.0) Aspartate Amino Transf (AST/SGOT) 28 U/L (15-37) Alanine Aminotransferase (ALT/SGPT) 28 U/L (14-59) Alkaline Phosphatase 60 U/L (46-116) Total Protein 5.8 g/dL (6.4-8.2) Albumin 2.9 g/dL (3.4-5.0) Albumin/Globulin Ratio 1.0 (1.0-1.7) Medications Current Medications Fentanyl Citrate (Fentanyl 2ml Vial) 100 mcg 1X ONCE IVP Last administered on 05/15/19at 04:14; Start 05/15/19 at 04:15; Stop 05/15/19 at 04:28; Status DC Ondansetron HCl (Zofran) 4 mg PRN Q8HRS PRN IV NAUSEA/VOMITING Last admini stered on 05/15/19at 04:56; Start 05/15/19 at 04:15; Stop 05/15/19 at 16:47; Status DC Fentanyl Citrate (Fentanyl 2ml Vial) 50 mcg PRN Q1HR PRN IV PAIN Last administered on 05/16/19at 02:03; Start 05/15/19 at 04:15; Stop 05/16/19 at 04:14; Status DC Sodium Chloride 1,000 ml @ 100 mls/hr Q10H IV Last administered on 05/15/19at 13:28; Start 05/15/19 at 04:15; Stop 05/16/19 at 04:14; Status DC Hydromorphone HCl (Dilaudid) 1 mg 1X ONCE IV Last administered on 05/15/19at 04:56; Start 05/15/19 at 04:45; Stop 05/15/19 at 05:01; Status DC Influenza Virus Vaccine Quadrival (Afluria Quad 2019-20 (3yr Up) Syringe) 0.5 ml ONCE ONCE VAX IM Last administered on 05/16/19at 08:52; Start 05/15/19 at 09:00; Stop 05/15/19 at 09:01; Status DC Ondansetron HCl (Zofran) 4 mg PRN Q6HRS PRN IV NAUSEA/VOMITING; Start 05/15/19 at 08:00; Stop 05/15/19 at 16:47; Status DC Fentanyl Citrate (Fentanyl 2ml Vial) 25 mcg PRN Q5MIN PRN IV MILD PAIN 1-3; Start 05/15/19 at 08:00; Stop 05/16/19 at 07:59; Status DC Fentanyl Citrate (Fentanyl 2ml Vial) 50 mcg PRN Q5MIN PRN IV MODERATE TO SEVERE PAIN Last administered on 05/15/19at 17:55; Start 05/15/19 at 08:00; Stop 05/16/19 at 07:59; Status DC Morphine Sulfate (Morphine Sulfate) 1 mg PRN Q10MIN PRN IV SEVERE PAIN 7-10; Start 05/15/19 at 08:00; Stop 05/16/19 at 07:59; Status DC Ringer's Solution 1,000 ml @ 30 mls/hr Q24H IV ; Start 05/15/19 at 07:54; Stop 05/15/19 at 19:53; Status DC Hydromorphone HCl (Dilaudid) 0.5 mg PRN Q10MIN PRN IV SEV PAIN, Second choice; Start 05/15/19 at 08:00; Stop 05/16/19 at 07:59; Status DC Prochlorperazine Edisylate (Compazine) 5 mg PACU PRN PRN IV NAUSEA, MRX1; Start 05/15/19 at 08:00; Stop 05/16/19 at 07:59; Status DC Sevoflurane (Ultane) 60 ml STK-MED ONCE IH ; Start 05/15/19 at 10:57; Stop 05/15/19 at 10:57; Status DC Propofol 20 ml @ As Directed STK-MED ONCE IV ; Start 05/15/19 at 10:57; Stop 05/15/19 at 10:57; Status DC Dexamethasone Sodium Phosphate (Decadron) 4 mg STK-MED ONCE .ROUTE ; Start 05/15/19 at 10:57; Stop 05/15/19 at 10:57; Status DC Ondansetron HCl (Zofran) 4 mg STK-MED ONCE .ROUTE ; Start 05/15/19 at 10:57; Stop 05/15/19 at 10:57; Status DC Lidocaine HCl (Lidocaine Pf 2% Vial) 5 ml STK-MED ONCE .ROUTE ; Start 05/15/19 at 10:57; Stop 05/15/19 at 10:58; Status DC Ketorolac Tromethamine (Toradol 30mg Vial) 30 mg STK-MED ONCE .ROUTE ; Start 05/15/19 at 10:57; Stop 05/15/19 at 10:58; Status DC Fentanyl Citrate (Fentanyl 2ml Vial) 100 mcg STK-MED ONCE .ROUTE ; Start 05/15/19 at 11:16; Stop 05/15/19 at 11:16; Status DC Midazolam HCl (Versed) 2 mg STK-MED ONCE .ROUTE ; Start 05/15/19 at 11:21; Stop 05/15/19 at 11:22; Status DC Cefazolin Sodium (Ancef) 1 gm STK-MED ONCE .ROUTE ; Start 05/15/19 at 12:01; Stop 05/15/19 at 12:01; Status DC Phenylephrine HCl (PHENYLEPHRINE in 0.9% NACL PF) 1 mg STK-MED ONCE IV ; Start 05/15/19 at 12:45; Stop 05/15/19 at 12:46; Status DC Phenylephrine HCl (PHENYLEPHRINE in 0.9% NACL PF) 1 mg STK-MED ONCE IV ; Start 05/15/19 at 12:45; Stop 05/15/19 at 12:46; Status DC Aspirin (Children'S Aspirin) 81 mg DAILY PO Last administered on 05/16/19 08:47; Start 05/15/19 at 14:00 Carvedilol (Coreg) 12.5 mg BIDWMEALS PO Last administered on 05/16/19 08:48; Start 05/15/19 at 17:00 Hydrochlorothiazide (Microzide) 12.5 mg DAILY PO Last administered on 05/16/19 08:46; Start 05/15/19 at 14:00 Levothyroxine Sodium (Synthroid) 100 mcg DAILY07 PO Last administered on 05/16/19at 06:09; Start 05/15/19 at 14:00 Losartan Potassium (Cozaar) 25 mg DAILY PO Last administered on 05/15/19at 17:53; Start 05/15/19 at 14:00 Calcium/Vitamin D (Oscal D 500mg/ 200uts) 1 tab DAILY PO Last administered on 05/16/19 08:47; Start 05/15/19 at 14:00 Multivitamins (Thera M Plus) 1 tab DAILY PO ; Start 05/21/19 at 09:00 Multivitamins 10 ml/Thiamine HCl 100 mg/Folic Acid 1 mg/Sodium Chloride 1,011.2 ml @ 100 mls/ hr DAILY IV Last administered on 05/16/19at 08:57; Start 05/16/19 at 09:00; Stop 05/20/19 at 19:07 Lorazepam (Ativan) 0.5 mg PRN Q6HRS PRN PO CIWA; Start 05/15/19 at 13:30 Lorazepam (Ativan Inj) 2 mg PRN Q1HR PRN IV For CIWA 15 or greater; Start 05/15/19 at 13:30 Clonidine HCl (Catapres) 0.1 mg PRN Q1HR PRN PO SBP > 180 or DBP > 100, MRX3; Start 05/15/19 at 13:30 Enoxaparin Sodium (Lovenox 40mg Syringe) 40 mg Q24H SQ ; Start 05/15/19 at 14:30; Stop 05/15/19 at 16:48; Status DC Warfarin Sodium (Coumadin) 5 mg DAILY16 PO ; Start 05/15/19 at 16:00; Stop 05/15/19 at 16:48; Status DC Warfarin Sodium (Coumadin Per Pharmacy) 1 each PRN DAILY PRN MC SEE COMMENTS; Start 05/15/19 at 14:15; Stop 05/15/19 at 16:48; Status DC Oxycodone HCl (Roxicodone) 5 mg PRN Q3HRS PRN PO PAIN Last administered on 05/16/19at 06:16; Start 05/15/19 at 16:45 Morphine Sulfate (Morphine Sulfate) 2 mg PRN Q1HR PRN IV PAIN; Start 05/15/19 at 16:45 Fentanyl Citrate (Fentanyl 2ml Vial) 25 mcg PRN Q1HR PRN IV PAIN; Start 05/15/19 at 16:45 Senna/Docusate Sodium (Senna Plus) 1 tab DAILY PO Last administered on 05/16/19at 08:47; Start 05/16/19 at 09:00 Polyethylene Glycol (miraLAX PACKET) 17 gm PRN DAILY PRN PO CONSTIPATION; Start 05/15/19 at 16:45 Ondansetron HCl (Zofran) 4 mg PRN Q4HRS PRN IV NAUSEA/VOMITING; Start 05/15/19 at 16:45 Magnesium Hydroxide (Milk Of Magnesia) 2,400 mg 1X PRN PRN PO CONSTIPATION; Start 05/16/19 at 06:00; Stop 05/17/19 at 05:59 Bisacodyl (Dulcolax Supp) 10 mg 1X PRN PRN [place] CONSTIPATION; Start 05/16/19 at 16:00; Stop 05/17/19 at 15:59 Acetaminophen/ Hydrocodone Bitart (Lortab 7.5/325) 1 tab PRN Q4HRS PRN PO PAIN Last administered on 05/16/19at 07:24; Start 05/15/19 at 16:45 Morphine Sulfate (Morphine Sulfate) 4 mg PRN Q2HR PRN IV PAIN; Start 05/15/19 at 16:45 Acetaminophen/ Hydrocodone Bitart (Lortab 7.5/325) 2 tab PRN Q4HRS PRN PO PAIN; Start 05/15/19 at 16:45 Dextrose (Dextrose 50%-Water Syringe) 12.5 gm PRN Q15MIN PRN IV SEE COMMENTS; Start 05/15/19 at 16:45 Cefazolin Sodium (Ancef) 1 gm Q6H IVP Last administered on 05/16/19at 06:09; Start 05/15/19 at 18:00; Stop 05/16/19 at 06:01; Status DC Rivaroxaban (Xarelto) 10 mg DAILYWSUP PO Last administered on 05/15/19at 17:52; Start 05/15/19 at 17:00; Stop 07/14/19 at 16:59 Active Scripts Active Reported Multivitamins (Multivitamin) 1 Each Tablet 1 Tab PO DAILY Calcium + Vitamin D Tablet (Calcium Carbonate/Vitamin D3) 1 Each Tablet 1 Each PO DAILY Aspirin 81 Mg Tab.chew 1 Tab PO DAILY Losartan Potassium (Losartan Potassium) 25 Mg Tablet 25 Mg PO DAILY Carvedilol (Carvedilol) 12.5 Mg Tablet 12.5 Mg PO BIDWMEALS Hydrochlorothiazide Capsule (Hydrochlorothiazide) 12.5 Mg Capsule 12.5 Mg PO DAILY Synthroid (Levothyroxine Sodium) 100 Mcg Tablet 1 Tab PO DAILY Vitals/I & O Vital Sign - Last 24 Hours 05/15/19 05/15/19 05/15/19 05/15/19 13:14 13:29 13:29 13:44 Temp 97.9 97.9 Pulse 68 66 70 Resp 20 20 20 20 B/P (MAP) 113/78 101/63 109/68 Pulse Ox 99 100 100 99 O2 Delivery Nasal Cannula Room Air Nasal Cannula Nasal Cannula O2 Flow Rate 2 2.0 2 2 05/15/19 05/15/19 05/15/19 05/15/19 13:59 13:59 14:05 14:05 Temp 97.3 97.3 Pulse 68 68 Resp 20 20 20 B/P (MAP) 88/57 101/62 Pulse Ox 98 98 O2 Delivery Nasal Cannula Nasal Cannula Nasal Cannula Nasal Cannula O2 Flow Rate 2.0 2 2 2 10/05/15/19 05/15/19 05/15/19 14:13 14:25 14:40 14:43 Temp 97.9 97.9 Pulse 69 75 Resp 20 16 18 B/P (MAP) 100/64 (76) 101/69 (80) Pulse Ox 97 98 98 93 O2 Delivery Room Air Nasal Cannula Nasal Cannula Nasal Cannula O2 Flow Rate 2.0 2.0 2.0 05/15/19 05/15/19 05/15/19 05/15/19 14:54 15:10 15:25 15:56 Pulse 73 67 66 B/P (MAP) 99/63 (75) 109/84 (92) 101/68 (79) 85/55 (65) Pulse Ox 99 99 98 O2 Delivery Nasal Cannula Nasal Cannula Nasal Cannula O2 Flow Rate 2.0 2.0 2.0 05/15/19 05/15/19 05/15/19 05/15/19 16:24 17:24 17:53 17:54 Pulse 69 66 68 68 B/P (MAP) 105/57 (73) 104/61 (75) 101/62 101/62 Pulse Ox 97 100 O2 Delivery Nasal Cannula Nasal Cannula O2 Flow Rate 2.0 2.0 05/15/19 05/15/19 05/15/19 05/15/19 17:55 18:24 18:25 19:00 Temp 98.9 98.9 Pulse 67 67 Resp 20 20 B/P (MAP) 109/60 (76) 91/53 (66) Pulse Ox 99 93 O2 Delivery Nasal Cannula Nasal Cannula Nasal Cannula Room Air O2 Flow Rate 2.0 2.0 2.0 05/15/19 05/15/19 05/16/19 05/16/19 20:00 23:00 02:03 02:33 Temp 98.1 98.1 Pulse 63 Resp 18 18 B/P (MAP) 99/59 (72) Pulse Ox 95 O2 Delivery Room Air Room Air Room Air Room Air 05/16/19 05/16/19 05/16/19 05/16/19 03:23 06:16 07:00 07:16 Temp 98.2 98.0 98.2 98.0 Pulse 68 72 Resp 18 16 B/P (MAP) 117/59 (78) 110/95 (100) Pulse Ox 98 97 O2 Delivery Nasal Cannula Room Air Room Air Room Air O2 Flow Rate 2.0 05/16/19 05/16/19 05/16/19 07:24 08:48 11:00 Temp 98.8 98.8 Pulse 68 79 Resp 16 B/P (MAP) 117/59 93/39 (57) Pulse Ox 92 O2 Delivery Room Air Room Air Intake and Output 05/15/19 05/15/19 05/16/19 15:00 23:00 07:00 Intake Total 1600 ml 400 ml Output Total 800 ml 900 ml Balance 800 ml -500 ml SAVANNA HIGH MD May 16, 2019 12:05
[2019-05-16] MEDS ORDERED: ANTI-COAG MONITOR BY PHARMACY. MC PRN (14:30)
[2019-05-16] MEDS ORDERED: BISACODYL 10 MG SUPP.RECT. PR PRN (16:00)
[2019-05-16] MEDS: RIVAROXABAN 10 MG TABLET. PO SCH (17:22)
[2019-05-16 17:44] LABS: HEMATOCRIT 22.9 % (36.0-47.0)
[2019-05-16] MEDS ORDERED: ALBUMIN HUMAN 5% 500 ML IV ONE (20:45)
--- NOTE | 2019-05-16 23:58 | NUR ---
Pt.'s blood pressure this evening has been low. Dr. Chaney called for orders. Orders have been implemented and this nurse will recheck BP when albumin is done running. Will continue to monitor.
[2019-05-17] VITALS (13 sets, daily range): BP systolic 83–129; BP diastolic 42–64
[2019-05-17] MEDS: HYDROcodone/APAP 7.5/325MG 1 TAB TABLET PO PRN ×3 (00:53→16:59)
[2019-05-17 04:48] LABS: BASO % 1 % (0-3); EOS # 0.1 x10^3/uL (0.0-0.7); EOS % 1 % (0-3); LYMPH # 1.7 x10^3/uL (1.0-4.8); LYMPH % 24 % (24-48); MEAN CORPUSCULAR HEMOGLOBIN 35 pg (25-35); MEAN CORPUSCULAR HGB CONC 34 g/dL (31-37); MEAN CORPUSCULAR VOLUME 102 fL (79-100); MONO # 0.6 x10^3/uL (0.0-1.1); MONO % 9 % (0-9); NEUT # 4.7 x10^3/uL (1.8-7.7); NEUT % 66 % (31-73); PLATELET COUNT 124 x10^3/uL (140-400); RED BLOOD COUNT 1.81 x10^6/uL (3.50-5.40); RED CELL DISTRIBUTION WIDTH 12.3 % (11.5-14.5); WHITE BLOOD COUNT 7.2 x10^3/uL (4.0-11.0)
[2019-05-17 04:50] LABS: HEMATOCRIT 18.4 % (36.0-47.0); HEMOGLOBIN 6.3 g/dL (12.0-15.5)
[2019-05-17 05:05] LABS: CALCIUM 7.7 mg/dL (8.5-10.1); CREATININE 0.5 mg/dL (0.6-1.0); GFR 124.6
[2019-05-17 05:10] LABS: POTASSIUM 3.5 mmol/L (3.5-5.1)
--- NOTE | 2019-05-17 05:29 | NUR ---
critical Hgb 6.3, hct 18.4. Dr. Chavez called and orders given. Consent signed. Patient's daughter Minal was called to update. Will continue to monitior.
[2019-05-17] MEDS: LEVOTHYROXINE 100 MCG TABLET PO SCH (06:34)
[2019-05-17] MEDS ORDERED: PROCHLORPERAZINE 10 MG/2 ML VIAL. IV ONE (07:00)
[2019-05-17] MEDS ORDERED: ACETAMINOPHEN 325 MG TABLET. PO PRN (07:00)
[2019-05-17] MEDS: CARVEDILOL 12.5 MG TABLET. PO SCH (08:00)
[2019-05-17] MEDS: ASPIRIN CHEWABLE 81 MG TABLET. PO SCH (08:15)
[2019-05-17] MEDS: CALCIUM CARB/VIT D3 500/200 TABLET. PO SCH (08:15)
[2019-05-17] MEDS: SENNOSIDES/DOCUSATE 8.6/50MG TABLET. PO SCH (08:15)
--- NOTE | 2019-05-17 08:34 | PDOC ---
ORTHO PROGRESS NOTES Subjective Patient states feeling weak and was unable to get up with PT last evening. Post-op Day: 2 Procedure ORIF with long IM Nail Vitals Vital Signs Date Time Temp Pulse Resp B/P (MAP) Pulse Ox O2 Delivery O2 Flow Rate FiO2 05/17/19 08:09 98.9 85 20 93/54 98.9 05/17/19 07:50 Nasal Cannula 2.0 05/17/19 07:00 96 Labs Laboratory Tests Test 05/16/19 06:26 05/16/19 17:30 05/17/19 04:30 White Blood Count 11.9 x10^3/uL (4.0-11.0) 7.2 x10^3/uL (4.0-11.0) Red Blood Count 2.69 x10^6/uL (3.50-5.40) 1.81 x10^6/uL (3.50-5.40) Hemoglobin 9.3 g/dL (12.0-15.5) 8.0 g/dL (12.0-15.5) 6.3 g/dL (12.0-15.5) Hematocrit 27.4 % (36.0-47.0) 22.9 % (36.0-47.0) 18.4 % (36.0-47.0) Mean Corpuscular Volume 102 fL (79-100) 102 fL (79-100) Mean Corpuscular Hemoglobin 35 pg (25-35) 35 pg (25-35) Mean Corpuscular Hemoglobin Concent 34 g/dL (31-37) 35 g/dL (31-37) 34 g/dL (31-37) Red Cell Distribution Width 12.6 % (11.5-14.5) 12.3 % (11.5-14.5) Platelet Count 197 x10^3/uL (140-400) 124 x10^3/uL (140-400) Neutrophils (%) (Auto) 76 % (31-73) 66 % (31-73) Lymphocytes (%) (Auto) 15 % (24-48) 24 % (24-48) Monocytes (%) (Auto) 9 % (0-9) 9 % (0-9) Eosinophils (%) (Auto) 0 % (0-3) 1 % (0-3) Basophils (%) (Auto) 0 % (0-3) 1 % (0-3) Neutrophils # (Auto) 9.0 x10^3/uL (1.8-7.7) 4.7 x10^3/uL (1.8-7.7) Lymphocytes # (Auto) 1.8 x10^3/uL (1.0-4.8) 1.7 x10^3/uL (1.0-4.8) Monocytes # (Auto) 1.1 x10^3/uL (0.0-1.1) 0.6 x10^3/uL (0.0-1.1) Eosinophils # (Auto) 0.0 x10^3/uL (0.0-0.7) 0.1 x10^3/uL (0.0-0.7) Basophils # (Auto) 0.0 x10^3/uL (0.0-0.2) 0.0 x10^3/uL (0.0-0.2) Prothrombin Time 18.2 SEC (11.7-14.0) Prothromb Time International Ratio 1.5 (0.8-1.1) Sodium Level 137 mmol/L (136-145) 140 mmol/L (136-145) Potassium Level 4.9 mmol/L (3.5-5.1) 3.5 mmol/L (3.5-5.1) Chloride Level 104 mmol/L (98-107) 106 mmol/L (98-107) Carbon Dioxide Level 28 mmol/L (21-32) 27 mmol/L (21-32) Anion Gap 5 (6-14) 7 (6-14) Blood Urea Nitrogen 15 mg/dL (7-20) 7 mg/dL (7-20) Creatinine 0.7 mg/dL (0.6-1.0) 0.5 mg/dL (0.6-1.0) Estimated GFR (Cockcroft-Gault) 84.5 124.6 BUN/Creatinine Ratio 21 (6-20) Glucose Level 97 mg/dL (70-99) 99 mg/dL (70-99) Calcium Level 8.7 mg/dL (8.5-10.1) 7.7 mg/dL (8.5-10.1) Total Bilirubin 0.7 mg/dL (0.2-1.0) Aspartate Amino Transf (AST/SGOT) 28 U/L (15-37) Alanine Aminotransferase (ALT/SGPT) 28 U/L (14-59) Alkaline Phosphatase 60 U/L (46-116) Total Protein 5.8 g/dL (6.4-8.2) Albumin 2.9 g/dL (3.4-5.0) Albumin/Globulin Ratio 1.0 (1.0-1.7) Laboratory Tests Test 05/16/19 17:30 05/17/19 04:30 Hemoglobin 8.0 g/dL (12.0-15.5) 6.3 g/dL (12.0-15.5) Hematocrit 22.9 % (36.0-47.0) 18.4 % (36.0-47.0) Mean Corpuscular Hemoglobin Concent 35 g/dL (31-37) 34 g/dL (31-37) White Blood Count 7.2 x10^3/uL (4.0-11.0) Red Blood Count 1.81 x10^6/uL (3.50-5.40) Mean Corpuscular Volume 102 fL (79-100) Mean Corpuscular Hemoglobin 35 pg (25-35) Red Cell Distribution Width 12.3 % (11.5-14.5) Platelet Count 124 x10^3/uL (140-400) Neutrophils (%) (Auto) 66 % (31-73) Lymphocytes (%) (Auto) 24 % (24-48) Monocytes (%) (Auto) 9 % (0-9) Eosinophils (%) (Auto) 1 % (0-3) Basophils (%) (Auto) 1 % (0-3) Neutrophils # (Auto) 4.7 x10^3/uL (1.8-7.7) Lymphocytes # (Auto) 1.7 x10^3/uL (1.0-4.8) Monocytes # (Auto) 0.6 x10^3/uL (0.0-1.1) Eosinophils # (Auto) 0.1 x10^3/uL (0.0-0.7) Basophils # (Auto) 0.0 x10^3/uL (0.0-0.2) Sodium Level 140 mmol/L (136-145) Potassium Level 3.5 mmol/L (3.5-5.1) Chloride Level 106 mmol/L (98-107) Carbon Dioxide Level 27 mmol/L (21-32) Anion Gap 7 (6-14) Blood Urea Nitrogen 7 mg/dL (7-20) Creatinine 0.5 mg/dL (0.6-1.0) Estimated GFR (Cockcroft-Gault) 124.6 Glucose Level 99 mg/dL (70-99) Calcium Level 7.7 mg/dL (8.5-10.1) Notes awake and alert with complaint of weakness and swelling of leg Assessment and Plan POD # 2 S/P ORIF Left Hip IM Nail motor and sensation intact distally dressing dry and intact Hgb today 6.3 with transfusion started PT to see. [facility] APRN May 17, 2019 08:34
[2019-05-17] MEDS: RIVAROXABAN 10 MG TABLET. PO SCH (09:52)
--- NOTE | 2019-05-17 09:53 | NUR ---
Debbie for [address] Lucero's free text orders.
--- NOTE | 2019-05-17 10:26 | PDOC ---
PROGRESS NOTES Chief Complaint Chief Complaint A/P: Left hip fracture - comminuted.s/p sx 05/15 250 cc EBL plus hematoma - per surgical note Hypothyroidism - on levothyroxine, -check levels HTN, on 3 BP meds NOW SYMPTOMATIC HYPOTENSION ETOH use on CIWA Smoker - History of Present Illness History of Present Illness hgb 6,3 today from NORMAL on admission Paulo FRANCO ordered 1` unit HYpotensive with sxs, she usually runs high and was on 3 BP meds at home, some of which was being held Agreeable to rehab before going home NO signs of etoh withdrawal CAring at bedside PLAN: REcheck HGb 2 hrs post BT IF still low side < 8 plus HYPOTENSION persists, might need 1 more unit She had signif blood loss based on my review of intra op note VIt D levels are normal FULL CODE SW - ARH screen dw СЕРГЕЙ velazquez and HOld BB CHeck TSh, t3, t4 - make sure not hyperthyroid or over corrected-she is non obese on synthroid Vitals Vitals Vital Signs Date Time Temp Pulse Resp B/P (MAP) Pulse Ox O2 Delivery O2 Flow Rate FiO2 05/17/19 09:30 97.2 83 20 98/58 97.2 05/17/19 07:50 Nasal Cannula 2.0 05/17/19 07:00 96 Physical Exam General: Alert, Oriented X3, Cooperative, mild distress Heart: Regular rate, Normal S1, Normal S2 Lungs: Clear Abdomen: Normal bowel sounds, Soft, No tenderness, No hepatosplenomegaly, No masses Extremities: No clubbing, No cyanosis, No edema, Normal pulses, Other Skin: No rashes, No breakdown, No significant lesion Labs LABS Laboratory Tests Test 05/16/19 17:30 05/17/19 04:30 Hemoglobin 8.0 g/dL (12.0-15.5) 6.3 g/dL (12.0-15.5) Hematocrit 22.9 % (36.0-47.0) 18.4 % (36.0-47.0) Mean Corpuscular Hemoglobin Concent 35 g/dL (31-37) 34 g/dL (31-37) White Blood Count 7.2 x10^3/uL (4.0-11.0) Red Blood Count 1.81 x10^6/uL (3.50-5.40) Mean Corpuscular Volume 102 fL (79-100) Mean Corpuscular Hemoglobin 35 pg (25-35) Red Cell Distribution Width 12.3 % (11.5-14.5) Platelet Count 124 x10^3/uL (140-400) Neutrophils (%) (Auto) 66 % (31-73) Lymphocytes (%) (Auto) 24 % (24-48) Monocytes (%) (Auto) 9 % (0-9) Eosinophils (%) (Auto) 1 % (0-3) Basophils (%) (Auto) 1 % (0-3) Neutrophils # (Auto) 4.7 x10^3/uL (1.8-7.7) Lymphocytes # (Auto) 1.7 x10^3/uL (1.0-4.8) Monocytes # (Auto) 0.6 x10^3/uL (0.0-1.1) Eosinophils # (Auto) 0.1 x10^3/uL (0.0-0.7) Basophils # (Auto) 0.0 x10^3/uL (0.0-0.2) Sodium Level 140 mmol/L (136-145) Potassium Level 3.5 mmol/L (3.5-5.1) Chloride Level 106 mmol/L (98-107) Carbon Dioxide Level 27 mmol/L (21-32) Anion Gap 7 (6-14) Blood Urea Nitrogen 7 mg/dL (7-20) Creatinine 0.5 mg/dL (0.6-1.0) Estimated GFR (Cockcroft-Gault) 124.6 Glucose Level 99 mg/dL (70-99) Calcium Level 7.7 mg/dL (8.5-10.1) Review of Systems Review of Systems dizzy when upright, all else 14 pt neg Assessment and Plan Assessmemt and Plan Problems Medical Problems: (1) Fall Status: Acute (2) Hip fracture, left Status: Acute (3) Hypertension Status: Acute (4) Intertrochanteric fracture of left hip Status: Acute (5) Left hip pain Status: Acute Comment Review of Relevant I have reviewed the following items marily (where applicable) has been applied. Labs Laboratory Tests Test 05/16/19 06:26 05/16/19 17:30 05/17/19 04:30 White Blood Count 11.9 x10^3/uL (4.0-11.0) 7.2 x10^3/uL (4.0-11.0) Red Blood Count 2.69 x10^6/uL (3.50-5.40) 1.81 x10^6/uL (3.50-5.40) Hemoglobin 9.3 g/dL (12.0-15.5) 8.0 g/dL (12.0-15.5) 6.3 g/dL (12.0-15.5) Hematocrit 27.4 % (36.0-47.0) 22.9 % (36.0-47.0) 18.4 % (36.0-47.0) Mean Corpuscular Volume 102 fL (79-100) 102 fL (79-100) Mean Corpuscular Hemoglobin 35 pg (25-35) 35 pg (25-35) Mean Corpuscular Hemoglobin Concent 34 g/dL (31-37) 35 g/dL (31-37) 34 g/dL (31-37) Red Cell Distribution Width 12.6 % (11.5-14.5) 12.3 % (11.5-14.5) Platelet Count 197 x10^3/uL (140-400) 124 x10^3/uL (140-400) Neutrophils (%) (Auto) 76 % (31-73) 66 % (31-73) Lymphocytes (%) (Auto) 15 % (24-48) 24 % (24-48) Monocytes (%) (Auto) 9 % (0-9) 9 % (0-9) Eosinophils (%) (Auto) 0 % (0-3) 1 % (0-3) Basophils (%) (Auto) 0 % (0-3) 1 % (0-3) Neutrophils # (Auto) 9.0 x10^3/uL (1.8-7.7) 4.7 x10^3/uL (1.8-7.7) Lymphocytes # (Auto) 1.8 x10^3/uL (1.0-4.8) 1.7 x10^3/uL (1.0-4.8) Monocytes # (Auto) 1.1 x10^3/uL (0.0-1.1) 0.6 x10^3/uL (0.0-1.1) Eosinophils # (Auto) 0.0 x10^3/uL (0.0-0.7) 0.1 x10^3/uL (0.0-0.7) Basophils # (Auto) 0.0 x10^3/uL (0.0-0.2) 0.0 x10^3/uL (0.0-0.2) Prothrombin Time 18.2 SEC (11.7-14.0) Prothromb Time International Ratio 1.5 (0.8-1.1) Sodium Level 137 mmol/L (136-145) 140 mmol/L (136-145) Potassium Level 4.9 mmol/L (3.5-5.1) 3.5 mmol/L (3.5-5.1) Chloride Level 104 mmol/L (98-107) 106 mmol/L (98-107) Carbon Dioxide Level 28 mmol/L (21-32) 27 mmol/L (21-32) Anion Gap 5 (6-14) 7 (6-14) Blood Urea Nitrogen 15 mg/dL (7-20) 7 mg/dL (7-20) Creatinine 0.7 mg/dL (0.6-1.0) 0.5 mg/dL (0.6-1.0) Estimated GFR (Cockcroft-Gault) 84.5 124.6 BUN/Creatinine Ratio 21 (6-20) Glucose Level 97 mg/dL (70-99) 99 mg/dL (70-99) Calcium Level 8.7 mg/dL (8.5-10.1) 7.7 mg/dL (8.5-10.1) Total Bilirubin 0.7 mg/dL (0.2-1.0) Aspartate Amino Transf (AST/SGOT) 28 U/L (15-37) Alanine Aminotransferase (ALT/SGPT) 28 U/L (14-59) Alkaline Phosphatase 60 U/L (46-116) Total Protein 5.8 g/dL (6.4-8.2) Albumin 2.9 g/dL (3.4-5.0) Albumin/Globulin Ratio 1.0 (1.0-1.7) Laboratory Tests Test 05/16/19 17:30 10/21/19 04:30 Hemoglobin 8.0 g/dL (12.0-15.5) 6.3 g/dL (12.0-15.5) Hematocrit 22.9 % (36.0-47.0) 18.4 % (36.0-47.0) Mean Corpuscular Hemoglobin Concent 35 g/dL (31-37) 34 g/dL (31-37) White Blood Count 7.2 x10^3/uL (4.0-11.0) Red Blood Count 1.81 x10^6/uL (3.50-5.40) Mean Corpuscular Volume 102 fL (79-100) Mean Corpuscular Hemoglobin 35 pg (25-35) Red Cell Distribution Width 12.3 % (11.5-14.5) Platelet Count 124 x10^3/uL (140-400) Neutrophils (%) (Auto) 66 % (31-73) Lymphocytes (%) (Auto) 24 % (24-48) Monocytes (%) (Auto) 9 % (0-9) Eosinophils (%) (Auto) 1 % (0-3) Basophils (%) (Auto) 1 % (0-3) Neutrophils # (Auto) 4.7 x10^3/uL (1.8-7.7) Lymphocytes # (Auto) 1.7 x10^3/uL (1.0-4.8) Monocytes # (Auto) 0.6 x10^3/uL (0.0-1.1) Eosinophils # (Auto) 0.1 x10^3/uL (0.0-0.7) Basophils # (Auto) 0.0 x10^3/uL (0.0-0.2) Sodium Level 140 mmol/L (136-145) Potassium Level 3.5 mmol/L (3.5-5.1) Chloride Level 106 mmol/L (98-107) Carbon Dioxide Level 27 mmol/L (21-32) Anion Gap 7 (6-14) Blood Urea Nitrogen 7 mg/dL (7-20) Creatinine 0.5 mg/dL (0.6-1.0) Estimated GFR (Cockcroft-Gault) 124.6 Glucose Level 99 mg/dL (70-99) Calcium Level 7.7 mg/dL (8.5-10.1) Medications Current Medications Fentanyl Citrate (Fentanyl 2ml Vial) 100 mcg 1X ONCE IVP Last administered on 05/15/19at 04:14; Start 05/15/19 at 04:15; Stop 05/15/19 at 04:28; Status DC Ondansetron HCl (Zofran) 4 mg PRN Q8HRS PRN IV NAUSEA/VOMITING Last administered on 05/15/19at 04:56; Start 05/15/19 at 04:15; Stop 05/15/19 at 16:47; Status DC Fentanyl Citrate (Fentanyl 2ml Vial) 50 mcg PRN Q1HR PRN IV PAIN Last administered on 05/16/19 02:03; Start 05/15/19 at 04:15; Stop 05/16/19 at 04:14; Status DC Sodium Chloride 1,000 ml @ 100 mls/hr Q10H IV Last administered on 05/15/19at 13:28; Start 05/15/19 at 04:15; Stop 05/16/19 at 04:14; Status DC Hydromorphone HCl (Dilaudid) 1 mg 1X ONCE IV Last administered on 05/15/19at 04:56; Start 05/15/19 at 04:45; Stop 05/15/19 at 05:01; Status DC Influenza Virus Vaccine Quadrival (Afluria Quad 2019-20 (3yr Up) Syringe) 0.5 ml ONCE ONCE VAX IM Last administered on 05/16/19at 08:52; Start 05/15/19 at 09:00; Stop 05/15/19 at 09:01; Status DC Ondansetron HCl (Zofran) 4 mg PRN Q6HRS PRN IV NAUSEA/VOMITING; Start 05/15/19 at 08:00; Stop 05/15/19 at 16:47; Status DC Fentanyl Citrate (Fentanyl 2ml Vial) 25 mcg PRN Q5MIN PRN IV MILD PAIN 1-3; Start 05/15/19 at 08:00; Stop 05/16/19 at 07:59; Status DC Fentanyl Citrate (Fentanyl 2ml Vial) 50 mcg PRN Q5MIN PRN IV MODERATE TO SEVERE PAIN Last administered on 05/15/19at 17:55; Start 05/15/19 at 08:00; Stop 05/16/19 at 07:59; Status DC Morphine Sulfate (Morphine Sulfate) 1 mg PRN Q10MIN PRN IV SEVERE PAIN 7-10; Start 05/15/19 at 08:00; Stop 05/16/19 at 07:59; Status DC Ringer's Solution 1,000 ml @ 30 mls/hr Q24H IV ; Start 05/15/19 at 07:54; Stop 05/15/19 at 19:53; Status DC Hydromorphone HCl (Dilaudid) 0.5 mg PRN Q10MIN PRN IV SEV PAIN, Second choice; Start 05/15/19 at 08:00; Stop 05/16/19 at 07:59; Status DC Prochlorperazine Edisylate (Compazine) 5 mg PACU PRN PRN IV NAUSEA, MRX1; Start 05/15/19 at 08:00; Stop 05/16/19 at 07:59; Status DC Sevoflurane (Ultane) 60 ml STK-MED ONCE IH ; Start 05/15/19 at 10:57; Stop 05/15/19 at 10:57; Status DC Propofol 20 ml @ As Directed STK-MED ONCE IV ; Start 05/15/19 at 10:57; Stop 05/15/19 at 10:57; Status DC Dexamethasone Sodium Phosphate (Decadron) 4 mg STK-MED ONCE .ROUTE ; Start 05/15/19 at 10:57; Stop 05/15/19 at 10:57; Status DC Ondansetron HCl (Zofran) 4 mg STK-MED ONCE .ROUTE ; Start 05/15/19 at 10:57; Stop 05/15/19 at 10:57; Status DC Lidocaine HCl (Lidocaine Pf 2% Vial) 5 ml STK-MED ONCE .ROUTE ; Start 05/15/19 at 10:57; Stop 05/15/19 at 10:58; Status DC Ketorolac Tromethamine (Toradol 30mg Vial) 30 mg STK-MED ONCE .ROUTE ; Start 05/15/19 at 10:57; Stop 05/15/19 at 10:58; Status DC Fentanyl Citrate (Fentanyl 2ml Vial) 100 mcg STK-MED ONCE .ROUTE ; Start 05/15/19 at 11:16; Stop 05/15/19 at 11:16; Status DC Midazolam HCl (Versed) 2 mg STK-MED ONCE .ROUTE ; Start 05/15/19 at 11:21; Stop 05/15/19 at 11:22; Status DC Cefazolin Sodium (Ancef) 1 gm STK-MED ONCE .ROUTE ; Start 05/15/19 at 12:01; Stop 05/15/19 at 12:01; Status DC Phenylephrine HCl (PHENYLEPHRINE in 0.9% NACL PF) 1 mg STK-MED ONCE IV ; Start 05/15/19 at 12:45; Stop 05/15/19 at 12:46; Status DC Phenylephrine HCl (PHENYLEPHRINE in 0.9% NACL PF) 1 mg STK-MED ONCE IV ; Start 05/15/19 at 12:45; Stop 05/15/19 at 12:46; Status DC Aspirin (Children'S Aspirin) 81 mg DAILY PO Last administered on 05/17/19at 08:15; Start 05/15/19 at 14:00 Carvedilol (Coreg) 12.5 mg BIDWMEALS PO Last administered on 05/16/19at 17:14; Start 05/15/19 at 17:00; Stop 05/17/19 at 10:18; Status DC Hydrochlorothiazide (Microzide) 12.5 mg DAILY PO Last administered on 05/16/19at 08:46; Start 05/15/19 at 14:00; Stop 05/16/19 at 12:02; Status DC Levothyroxine Sodium (Synthroid) 100 mcg DAILY07 PO Last administered on 05/17/19at 06:34; Start 05/15/19 at 14:00 Losartan Potassium (Cozaar) 25 mg DAILY PO Last administered on 05/15/19at 17:53; Start 05/15/19 at 14:00; Stop 05/16/19 at 12:02; Status DC Calcium/Vitamin D (Oscal D 500mg/ 200uts) 1 tab DAILY PO Last administered on 05/17/19at 08:15; Start 05/15/19 at 14:00 Multivitamins (Thera M Plus) 1 tab DAILY PO ; Start 05/21/19 at 09:00 Multivitamins 10 ml/Thiamine HCl 100 mg/Folic Acid 1 mg/Sodium Chloride 1,011.2 ml @ 100 mls/ hr DAILY IV Last administered on 05/16/19at 08:57; Start 05/16/19 at 09:00; Stop 05/20/19 at 19:07 Lorazepam (Ativan) 0.5 mg PRN Q6HRS PRN PO CIWA; Start 05/15/19 at 13:30 Lorazepam (Ativan Inj) 2 mg PRN Q1HR PRN IV For CIWA 15 or greater; Start 05/15/19 at 13:30 Clonidine HCl (Catapres) 0.1 mg PRN Q1HR PRN PO SBP > 180 or DBP > 100, MRX3; Start 05/15/19 at 13:30 Enoxaparin Sodium (Lovenox 40mg Syringe) 40 mg Q24H SQ ; Start 05/15/19 at 14:30; Stop 05/15/19 at 16:48; Status DC Warfarin Sodium (Coumadin) 5 mg DAILY16 PO ; Start 05/15/19 at 16:00; Stop 05/15/19 at 16:48; Status DC Warfarin Sodium (Coumadin Per Pharmacy) 1 each PRN DAILY PRN MC SEE COMMENTS; Start 05/15/19 at 14:15; Stop 05/15/19 at 16:48; Status DC Oxycodone HCl (Roxicodone) 5 mg PRN Q3HRS PRN PO PAIN Last administered on 05/16/19at 06:16; Start 05/15/19 at 16:45 Morphine Sulfate (Morphine Sulfate) 2 mg PRN Q1HR PRN IV PAIN Last administered on 05/16/19at 17:15; Start 05/15/19 at 16:45 Fentanyl Citrate (Fentanyl 2ml Vial) 25 mcg PRN Q1HR PRN IV PAIN; Start 05/15/19 at 16:45 Senna/Docusate Sodium (Senna Plus) 1 tab DAILY PO Last administered on 05/17/19at 08:15; Start 05/16/19 at 09:00 Polyethylene Glycol (miraLAX PACKET) 17 gm PRN DAILY PRN PO CONSTIPATION; Start 05/15/19 at 16:45 Ondansetron HCl (Zofran) 4 mg PRN Q4HRS PRN IV NAUSEA/VOMITING; Start 05/15/19 at 16:45 Magnesium Hydroxide (Milk Of Magnesia) 2,400 mg 1X PRN PRN PO CONSTIPATION; Start 05/16/19 at 06:00; Stop 05/17/19 at 05:59; Status DC Bisacodyl (Dulcolax Supp) 10 mg 1X PRN PRN HI CONSTIPATION; Start 05/16/19 at 16:00; Stop 05/17/19 at 15:59 Acetaminophen/ Hydrocodone Bitart (Lortab 7.5/325) 1 tab PRN Q4HRS PRN PO PAIN Last administered on 05/17/19at 00:53; Start 05/15/19 at 16:45 Morphine Sulfate (Morphine Sulfate) 4 mg PRN Q2HR PRN IV PAIN; Start 05/15/19 at 16:45 Acetaminophen/ Hydrocodone Bitart (Lortab 7.5/325) 2 tab PRN Q4HRS PRN PO PAIN Last administered on 05/16/19at 17:13; Start 05/15/19 at 16:45 Dextrose (Dextrose 50%-Water Syringe) 12.5 gm PRN Q15MIN PRN IV SEE COMMENTS; Start 05/15/19 at 16:45 Cefazolin Sodium (Ancef) 1 gm Q6H IVP Last administered on 05/16/19at 06:09; Start 05/15/19 at 18:00; Stop 05/16/19 at 06:01; Status DC Rivaroxaban (Xarelto) 10 mg DAILYWSUP PO Last administered on 05/16/19at 17:22; Start 05/15/19 at 17:00; Stop 07/14/19 at 16:59 Sodium Chloride 1,000 ml @ 1,000 mls/hr 1X ONCE IV Last administered on 05/16/19at 13:00; Start 05/16/19 at 12:00; Stop 05/16/19 at 12:59; Status DC Info (Anti-Coagulation Monitoring By Pharmacy) 1 each PRN DAILY PRN MC SEE COMMENTS Last administered on 05/16/19at 14:36; Start 05/16/19 at 14:30 Albumin Human 500 ml @ 125 mls/hr 1X ONCE IV Last administered on 05/16/19at 20:47; Start 05/16/19 at 20:45; Stop 05/17/19 at 00:44; Status DC Acetaminophen (Tylenol) 650 mg PRN Q6HRS PRN PO pain Last administered on 05/17/19at 07:11; Start 05/17/19 at 07:00 Prochlorperazine Edisylate (Compazine) 10 mg 1X ONCE IV Last administered on 05/17/19at 07:11; Start 05/17/19 at 07:00; Stop 05/17/19 at 07:01; Status DC Active Scripts Active Reported Multivitamins (Multivitamin) 1 Each Tablet 1 Tab PO DAILY Calcium + Vitamin D Tablet (Calcium Carbonate/Vitamin D3) 1 Each Tablet 1 Each PO DAILY Aspirin 81 Mg Tab.chew 1 Tab PO DAILY Losartan Potassium (Losartan Potassium) 25 Mg Tablet 25 Mg PO DAILY Carvedilol (Carvedilol) 12.5 Mg Tablet 12.5 Mg PO BIDWMEALS Hydrochlorothiazide Capsule (Hydrochlorothiazide) 12.5 Mg Capsule 12.5 Mg PO DAILY Synthroid (Levothyroxine Sodium) 100 Mcg Tablet 1 Tab PO DAILY Vitals/I & O Vital Sign - Last 24 Hours 05/16/19 05/16/19 05/16/19 05/16/19 11:00 13:02 14:02 14:51 Temp 98.8 97.9 98.8 97.9 Pulse 79 81 Resp 16 20 20 16 B/P (MAP) 93/39 (57) 90/43 (59) Pulse Ox 92 94 O2 Delivery Room Air Room Air Room Air Room Air 05/16/19 05/16/19 05/16/19 05/16/19 17:13 17:14 17:15 17:17 Pulse 81 Resp 20 20 B/P (MAP) 90/43 105/53 (70) O2 Delivery Room Air Room Air 05/16/19 05/16/19 05/16/19 05/16/19 17:17 17:45 18:13 19:00 Temp 97.5 97.5 Pulse 81 95 Resp 20 20 20 B/P (MAP) 99/52 (68) 77/42 (54) Pulse Ox 94 O2 Delivery Room Air Room Air Room Air 05/16/19 05/16/19 05/17/19 05/17/19 20:00 23:05 00:07 00:53 Temp 98.3 98.3 Pulse 85 78 Resp 19 B/P (MAP) 89/48 (62) 99/50 (66) Pulse Ox 92 O2 Delivery Nasal Cannula Nasal Cannula Room Air O2 Flow Rate 2.0 05/17/19 05/17/19 05/17/19 05/17/19 01:53 03:04 03:05 07:00 Temp 99.0 98.9 99.0 98.9 Pulse 79 84 85 Resp 18 20 B/P (MAP) 102/53 (69) 83/51 (62) 93/54 (67) Pulse Ox 97 96 O2 Delivery Nasal Cannula Nasal Cannula Nasal Cannula O2 Flow Rate 2.0 05/17/19 05/17/19 05/17/19 05/17/19 07:50 08:00 08:09 08:30 Temp 98.9 98.8 98.9 98.8 Pulse 85 85 81 Resp 20 20 B/P (MAP) 93/54 93/54 95/54 O2 Delivery Nasal Cannula O2 Flow Rate 2.0 05/17/19 09:30 Temp 97.2 97.2 Pulse 83 Resp 20 B/P (MAP) 98/58 Intake and Output 05/16/19 05/16/19 05/17/19 15:00 23:00 07:00 Intake Total 300 ml 120 ml Output Total 0 ml Balance 300 ml 120 ml 0 ml CELESTINE RUBIO MD May 17, 2019 10:26
--- NOTE | 2019-05-17 11:29 | NUR ---
SS following for discharge planning. SS reviewed pt chart. Pt is from home with spouse and is currently requiring oxygen. PT/OT recommended acute rehabilitation. SS met with pt and family in room to discuss acute rehabilitation and discharge planning. Pt and family declined acute rehabilitation stating that pt will discharge to home and go to [facility] in [place], [place]. Pt's RN notified. SS will continue to follow for discharge planning.
[2019-05-17] MEDS: MULTIVIT INFUSN,ADULT 4,VIT K 10 ML, THIAMINE INJ 100 MG, FOLIC ACID INJ 1 MG in IV NOR... IV SCH (11:31)
--- NOTE | 2019-05-17 13:47 | NUR ---
Blood bank notified of no current known order of additional transfusions of PRBCs. Blood bank also notified of pending HH for 1400 and that they will be notified of orders an additional unit of PRBCs.
[2019-05-17 14:27] LABS: HEMATOCRIT 21.8 % (36.0-47.0); HEMOGLOBIN 7.5 g/dL (12.0-15.5)
--- NOTE | 2019-05-17 15:04 | NUR ---
Dr. Lucero notified of Hgb 7.5, Hct 21.8, no new orders received at this time. Blood bank notified.
[2019-05-17 15:05] LABS: FREE T4 1.58 ng/dL (0.76-1.46); THYROID STIM HORMONE (TSH) 2.414 uIU/mL (0.358-3.74)
[2019-05-17] MEDS: IV NORMAL SALINE 1000ML BAG 1,000 ML IV SCH (17:00)
[2019-05-17] MEDS: oxyCODONE IR 5 MG TABLET PO PRN (18:16)
[2019-05-18] MEDS: IV NORMAL SALINE 1000ML BAG 1,000 ML IV SCH (01:52)
[2019-05-18 03:28] VITALS: BP 119/61
[2019-05-18 06:10] LABS: HEMOGLOBIN 7.7 g/dL (12.0-15.5)
[2019-05-18] MEDS: LEVOTHYROXINE 100 MCG TABLET PO SCH (06:25)
[2019-05-18] MEDS: HYDROcodone/APAP 7.5/325MG 1 TAB TABLET PO PRN ×3 (06:30→14:27)
[2019-05-18 06:38] LABS: CALCIUM 8.3 mg/dL (8.5-10.1); CREATININE 0.5 mg/dL (0.6-1.0); GFR 124.6; POTASSIUM 4.1 mmol/L (3.5-5.1)
[2019-05-18 07:00] VITALS: BP 145/47
[2019-05-18] MEDS: CALCIUM CARB/VIT D3 500/200 TABLET. PO SCH (09:12)
[2019-05-18] MEDS: ASPIRIN CHEWABLE 81 MG TABLET. PO SCH (09:12)
[2019-05-18] MEDS: SENNOSIDES/DOCUSATE 8.6/50MG TABLET. PO SCH (09:12)
[2019-05-18] MEDS: MULTIVIT INFUSN,ADULT 4,VIT K 10 ML, THIAMINE INJ 100 MG, FOLIC ACID INJ 1 MG in IV NOR... IV SCH (09:13)
[2019-05-18 11:00] VITALS: BP 140/54
[2019-05-18] MEDS ORDERED: FERR325T14 PO (11:30)
[2019-05-18] MEDS ORDERED: OXYC5TAB4 PO (11:30)
[2019-05-18] MEDS ORDERED: RIVA10TA PO (11:30)
--- NOTE | 2019-05-18 11:34 | PDOC3 ---
Discharge Summary Visit Information Date of Admission: May 15, 2019 Date of Discharge: May 18, 2019 Admitting Diagnosis Comment: Left hip fracture - comminuted.s/p sx 05/15 250 cc EBL plus hematoma - per surgical note Hypothyroidism - on levothyroxine, -check levels HTN, on 3 BP meds NOW SYMPTOMATIC HYPOTENSION, resolved after BT and IVF ETOH use on CIWA Smoker - Final Diagnosis Problems Medical Problems: (1) Fall Status: Acute (2) Hip fracture, left Status: Acute (3) Hypertension Status: Acute (4) Intertrochanteric fracture of left hip Status: Acute (5) Left hip pain Status: Acute Brief Hospital Course Allergies Allergies Coded Allergies Type Severity Reaction Last Updated Verified No Known Drug Allergies 05/15/19 No Vital Signs Vital Signs Date Time Temp Pulse Resp B/P (MAP) Pulse Ox O2 Delivery O2 Flow Rate FiO2 05/18/19 11:00 98.2 78 20 140/54 (82) 99 Room Air 98.2 05/17/19 07:50 2.0 Lab Results Laboratory Tests Test 05/16/19 17:30 05/17/19 04:30 05/17/19 14:05 05/18/19 05:41 Hemoglobin 8.0 g/dL (12.0-15.5) 6.3 g/dL (12.0-15.5) 7.5 g/dL (12.0-15.5) 7.7 g/dL (12.0-15.5) Hematocrit 22.9 % (36.0-47.0) 18.4 % (36.0-47.0) 21.8 % (36.0-47.0) 22.0 % (36.0-47.0) Mean Corpuscular Hemoglobin Concent 35 g/dL (31-37) 34 g/dL (31-37) 34 g/dL (31-37) 35 g/dL (31-37) White Blood Count 7.2 x10^3/uL (4.0-11.0) Red Blood Count 1.81 x10^6/uL (3.50-5.40) Mean Corpuscular Volume 102 fL (79-100) Mean Corpuscular Hemoglobin 35 pg (25-35) Red Cell Distribution Width 12.3 % (11.5-14.5) Platelet Count 124 x10^3/uL (140-400) Neutrophils (%) (Auto) 66 % (31-73) Lymphocytes (%) (Auto) 24 % (24-48) Monocytes (%) (Auto) 9 % (0-9) Eosinophils (%) (Auto) 1 % (0-3) Basophils (%) (Auto) 1 % (0-3) Neutrophils # (Auto) 4.7 x10^3/uL (1.8-7.7) Lymphocytes # (Auto) 1.7 x10^3/uL (1.0-4.8) Monocytes # (Auto) 0.6 x10^3/uL (0.0-1.1) Eosinophils # (Auto) 0.1 x10^3/uL (0.0-0.7) Basophils # (Auto) 0.0 x10^3/uL (0.0-0.2) Sodium Level 140 mmol/L (136-145) 139 mmol/L (136-145) Potassium Level 3.5 mmol/L (3.5-5.1) 4.1 mmol/L (3.5-5.1) Chloride Level 106 mmol/L (98-107) 104 mmol/L (98-107) Carbon Dioxide Level 27 mmol/L (21-32) 25 mmol/L (21-32) Anion Gap 7 (6-14) 10 (6-14) Blood Urea Nitrogen 7 mg/dL (7-20) 4 mg/dL (7-20) Creatinine 0.5 mg/dL (0.6-1.0) 0.5 mg/dL (0.6-1.0) Estimated GFR (Cockcroft-Gault) 124.6 124.6 Glucose Level 99 mg/dL (70-99) 95 mg/dL (70-99) Calcium Level 7.7 mg/dL (8.5-10.1) 8.3 mg/dL (8.5-10.1) Thyroid Stimulating Hormone (TSH) 2.414 uIU/mL (0.358-3.74) Free Thyroxine 1.58 ng/dL (0.76-1.46) Free Triiodothyronine (T3) pg/mL 1.89 pg/mL (2.18-3.98) Laboratory Tests Test 05/17/19 14:05 05/18/19 05:41 Hemoglobin 7.5 g/dL (12.0-15.5) 7.7 g/dL (12.0-15.5) Hematocrit 21.8 % (36.0-47.0) 22.0 % (36.0-47.0) Mean Corpuscular Hemoglobin Concent 34 g/dL (31-37) 35 g/dL (31-37) Thyroid Stimulating Hormone (TSH) 2.414 uIU/mL (0.358-3.74) Free Thyroxine 1.58 ng/dL (0.76-1.46) Free Triiodothyronine (T3) pg/mL 1.89 pg/mL (2.18-3.98) Sodium Level 139 mmol/L (136-145) Potassium Level 4.1 mmol/L (3.5-5.1) Chloride Level 104 mmol/L (98-107) Carbon Dioxide Level 25 mmol/L (21-32) Anion Gap 10 (6-14) Blood Urea Nitrogen 4 mg/dL (7-20) Creatinine 0.5 mg/dL (0.6-1.0) Estimated GFR (Cockcroft-Gault) 124.6 Glucose Level 95 mg/dL (70-99) Calcium Level 8.3 mg/dL (8.5-10.1) Brief Hospital Course Ms. Pollard is a 64 old who came in for a traumatic hip fx, INtra op she had hematoma nd EBL 250cc so post op hgb was 6,3 (from normal on admission), and got BT, Was also lightheaded and hypotensive, better with IVF and BT, NO PT needs, OP [facility];s. Dressing dry,Smoker and drinker [employer] but did not have withdrawal sxs in house, Pt seen and examined Started on xarelto by surgeon x 6 weeks, ON asa 81 at home, I advised hold asa while on xarelto and can resume once xarelto done BP now back to normal on dc, can safely resume BP meds at home ( 3 of those). COnsults: ortho Proc, hip sx Discharge Information Condition at Discharge: Improved, Stable Follow Up: Weeks (Dr dillard 2 weeks) Disposition/Orders: D/C to Home Scheduled Calcium Carbonate/Vitamin D3 (Calcium + Vitamin D Tablet) 1 Each Tablet, 1 EACH PO DAILY for low bone density, (Reported) Entered as Reported by: BALDOMERO SHARMA on 05/15/19724 Last Taken: Unknown Dose on 05/13/19 Last Action: Converted on 05/15/191319 by SAVANNA HIGH MD Carvedilol (Carvedilol ) 12.5 Mg Tablet, 12.5 MG PO BIDWMEALS for CARDIAC, (Reported) Entered as Reported by: BALDOMERO SHARMA on 05/15/19724 Last Taken: Unknown Dose on 05/13/19 Last Action: Continued on 05/15/191319 by SAVANNA HIGH MD Ferrous Sulfate (Ferrous Sulfate) 325 Mg Tablet, 1 TAB PO DAILY for anemia post op, #14 Ref 3 Prescribed by: CELESTINE RUBIO on 05/18/19 1130 Hydrochlorothiazide (Hydrochlorothiazide Capsule ) 12.5 Mg Capsule, 12.5 MG PO DAILY for DIURETIC, Ref 0 (Reported) Entered as Reported by: BALDOMERO SHARMA on 05/15/19724 Last Taken: Unknown Dose on 05/13/19 Last Action: Continued on 05/15/191319 by SAVANNA HIGH MD Levothyroxine Sodium (Synthroid) 100 Mcg Tablet, 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, #30 Ref 5 (Reported) Entered as Reported by: BALDOMERO SHARMA on 05/15/19724 Last Taken: Unknown Dose on 05/13/19 Last Action: Continued on 05/15/191319 by SAVANNA HIGH MD Losartan Potassium (Losartan Potassium ) 25 Mg Tablet, 25 MG PO DAILY for HYPERTENSION, (Reported) Entered as Reported by: BALDOMERO SHARMA on 05/15/19724 Last Taken: Unknown Dose on 05/13/19 Last Action: Continued on 05/15/191319 by SAVANNA HIGH MD Multivitamin (Multivitamins) 1 Each Tablet, 1 TAB PO DAILY for multivitamin, #90 Ref 3 (Reported) Entered as Reported by: BALDOMERO SHARMA on 05/15/19724 Last Taken: Unknown Dose on 05/13/19 Last Action: Converted on 05/15/191319 by SAVANNA HIGH MD Rivaroxaban (Xarelto) 10 Mg Tablet, 10 MG PO DAILYWSUP for post hip sx for 42 Days, #42 Prescribed by: CELESTINE RUBIO on 05/18/19 1130 Scheduled PRN Oxycodone Hcl (Oxycodone Hcl Immed.release ) 5 Mg Tablet, 5 MG PO PRN Q3HRS PRN for PAIN, #30 Prescribed by: CELESTINE RUBIO on 05/18/19 1130 Discontinued Medications Aspirin (Aspirin) 81 Mg Tab.chew, 1 TAB PO DAILY for blood thinner, #30 Ref 3 (Reported) Entered as Reported by: BALDOMERO SHARMA on 05/15/19 0725 Last Taken: Unknown Dose on 05/13/19 Last Action: Continued on 05/15/19 1320 by MD JOANNE IRVIN CHERRIE Y MD May 18, 2019 11:34
--- NOTE | 2019-05-18 14:28 | NUR ---
Pt. discharged to home with Rx, verbalized understanding of discharge. Erik reyes CDI.
[2019-05-19] MEDS ORDERED: MULTIVITAMIN with MINERAL TABLET. PO SCH (09:00)
== END 2019-05-18 14:32 | disposition home or self-care (01) | DRG 481 ==
LOC: ER 03:33 → 4 NORTH 04:14
PROVIDERS: ADMIT Internal Medicine; ATTEND Internal Medicine
PROC: 30233N1 Transfusion of Nonautologous Red Blood Cells into Peripheral Vein, Percutaneous Approach (ICD-10-PCS; 2019-05-15)
PROC: 0QS736Z Reposition Left Upper Femur with Intramedullary Internal Fixation Device, Percutaneous Approach (ICD-10-PCS; principal; 2019-05-15 12:00)
DX: S72.142A Displaced intertrochanteric fracture of left femur, initial encounter for closed fracture (principal); R71.0 Precipitous drop in hematocrit; I10 Essential (primary) hypertension; E03.9 Hypothyroidism, unspecified; E83.52 Hypercalcemia; I95.1 Orthostatic hypotension; F17.210 Nicotine dependence, cigarettes, uncomplicated; F10.10 Alcohol abuse, uncomplicated; W07.XXXA Fall from chair, initial encounter; Y93.89 Activity, other specified; Y92.89 Other specified places as the place of occurrence of the external cause; Y99.8 Other external cause status; Z79.82 Long term (current) use of aspirin; Z79.899 Other long term (current) drug therapy
CPT/HCPCS: 36415; 73501; 76000; 80048; 80053; 82306; 84439; 84443; 84481; 85014; 85018; 85025; 85610; 86850; 86900; 86901; 86920; 90471; 90686; 93005; 96374; 96375; A7015; C1713; C1887; J0690; J0780; J1100; J1170; J1885; J2001; J2250; J2270; J2370; J2405; J2704; J3010; J7030; P9016; P9045; 97110; 97116; 97530; 97535; 99285-25; G0378